=== PATIENT | female | born 1950 ===

== ENCOUNTER 2025-07-25 09:49 | Outpatient (AMB) | payer MEDICARE, SELFPAY ==
--- OUTSIDE RECORDS SUMMARY | 2025-04-14 15:20 | XMS_ITS | Encounter Summary ---
Author Organization [facility] Address [address] [place] [address] Care Team Providers Care Psychiatric Specialist Name Role Phone Dimitrios Barreto MD Primary Care Provider [phone] Dimitrios Barreto MD Unavailable [phone] Encounter Details Date Type Department Care Team (Late Contact Info) Description 04/14/2025 3:20 PM EDT Hospital [facility] [address] [place] [phone] Sunny Taylor MD [address] [place] [address] Social History Tobacco Use Types Packs/Day Years Used Date Smoking Tobacco: Never Smokeless Tobacco: Never Alcohol Use Standard Drinks/Week Comments Not Currently 0 (1 standard drink = 0.6 oz pur e alcohol) Comments Unknown Sex and Gender Information Value Date Recorded Sex Assigned at Female 04/15/2023 8:25 AM EDT Legal Sex Female 3:26 PM EDT Gender Identity Female 04/15/2023 8:25 AM EDT Sexual Orientation Choose not to disclose 2022 8:25 AM EDT Occupation Industry Job Start Date Job End Date Retired teacher Not on file Not on file Not on file documented as of this encounter Plan of Treatment Upcoming Encounters Date Type Department Care Team (Late st Contact Info) Description 11/19/2025 11:00 AM EST Office Visit [facility] Department of Internal Medicine [address] [place] [phone] Dimitrios Barreto MD [address] [facility] [place] [address] documented as of this encounter Procedures Procedure Name Priority Date/Time Associated Diagnosis Comments XR ANKLE 3+ VIEWS-LEFT STAT 04/14/2025 3:43 PM EDT Acute left ankle pain documented in this encounter Results * XR Ankle 3+ views-Left (04/14/2025 3:43 PM EDT) Anatomical Region Laterality Modality Ankle Left Computed Radiogr aphy 04/14/2025 3:54 PM EDT Impressions 04/14/2025 4:00 PM EDT 1. The medial soft tissue swelling along the ankle and posterior foot. No acute bony abnormality. Narrative 04/14/2025 4:00 PM EDT COMPARISON(S): None. . TECHNIQUE: AP, lateral, and oblique radiographs of the LEFT ankle were obtained. 3:34 PM . FINDINGS: There is slight soft tissue swelling asymmetrically over the medial malleolus. Bony mineralization and alignment are maintained. There are mild degenerative changes at the ankle joint medially. No radiopaque foreign body. No erosive or destructive abnormality. On the lateral, no ankle effusion is present. Vascular calcifications are present. No acute abnormality is seen in the posterior foot. Minimal calcifications at the Achilles insertion and there is a small plantar spur . Procedure Note Austin Contreras MD - 04/14/2025 COMPARISON(S): None. . TECHNIQUE: AP, lateral, and oblique radiographs of the LEFT ankle wereobtained. 3:34 PM . FINDINGS: There is slight soft tissue swelling asymmetrically over the medialmalleolus. Bony mineralization and alignment are maintained. There aremild degenerative changes at the ankle joint medially. No radiopaque foreign body. No erosive or destructive abnormality. On the lateral, no ankle effusion is present. Vascular calcifications arepresent. No acute abnormality is seen in the posterior foot. Minimal calcifications at the Achilles insertion and there is a smallplantar spur . IMPRESSION: 1. The medial soft tissue swelling along the ankle and posterior foot. Noacute bony abnormality. Tania Montgomery PA-C IMG DIAGNOSTIC IMAGING OR DERABLES Final Result documented in this encounter Visit Diagnoses Not on filedocumented in this encounter Care Teams Psychiatric Specialist Relationship Specialty Start Date End Date Dimitrios Barreto MD [address] [place] [id number] PCP - General Dimitrios Barreto MD [address] [place] [address] PCP - [facility] Medicare Patients 12/30/22 documented as of this encounter
--- OUTSIDE RECORDS SUMMARY | 2025-07-25 10:28 | XMS_ITS | Encounter Summary ---
Author Organization [facility] Address [address] [place] [address] Care Team Providers Care Assistant Manager Quality Management Name Role Phone Dimitrios Barreto MD Primary Care Provider Dimitrios Barreto MD Unavailable [phone] Erwin Palm MD Unavailable Unava ilable Encounter Details Date Type Department Care Team (Late st Contact Info) Description 12/31/2023 Scanned Document [facility] Department of Internal Medicine [address] 1[address] [place] [phone] Dimitrios Barreto MD [address] [place] [phone] Social History Tobacco Use Types Packs/Day Years [...] Description 11/19/2025 11:00 AM EST Office Visit [facility] Department of Internal Medicine [place] [address] [facility] 1st [place] [phone] Dimitrios Barreto MD [address] [place] [address] documented as of this encounter Visit Diagnoses Not on filedocumented in this encounter Care Teams Assistant Manager Quality Management Relationship Specialty Start Date End Date Dimitrios Barreto MD [address] [place] [address] PCP - General Dimitrios Barreto MD [address] [place] [address] PCP - [facility] Medicare Patients 12/30/22 Erwin Palm MD Internal Medicine 07/24/25 documented as of this encounter
--- OUTSIDE RECORDS SUMMARY | 2025-07-25 10:28 | XMS_ITS | Encounter Summary ---
Author Organization [facility] Address [address] [place] [address] Care Team Providers Care Ambulatory Services Representative Name Role Phone Dimitrios Barreto MD Primary Care Provider Dimitrios Barreto MD Unavailable [phone] Erwin Palm MD Unavailable Unava ilable Encounter Details Date Type Department Care Team (Late st Contact Info) Description 10/13/2023 Scanned Document [facility] Department of Internal Medicine [address] [place] [phone] Dimitrios Barreto MD [address] [place] [id number] Social History Tobacco Use Types Packs/Day Years Used Date Smoking Tobacco: Never Assessed Comments Unknown Sex and Gender Information Value Date Recorded Sex Assigned at Female 04/15/2023 8:25 AM EDT Legal Sex Female 3:26 PM EDT Gender Identity Female 04/15/2023 8:25 AM EDT Sexual Orientation Choose not to disclose 2022 8:25 AM EDT documented as of this encounter Plan of Treatment Upcoming Encounters Date Type Department Care Team (Late st Contact Info) Description 11/19/2025 11:00 AM EST Office Visit [facility] Department of Internal Medicine [address] [place] [phone] Dimitrios Barreto MD [address] [place] [address] documented as of this encounter Visit Diagnoses Not on filedocumented in this encounter Care Teams Ambulatory Services Representative Relationship Specialty Start Date End Date Dimitrios Barreto MD [address] [place] [address] [place] [address] PCP - General Dimitrios Barreto MD [address] [place] [address] [place] [address] PCP - [facility] Medicare Patients 12/30/22 Erwin Palm MD Internal Medicine 07/24/25 documented as of this encounter
--- OUTSIDE RECORDS SUMMARY | 2025-07-25 10:28 | XMS_ITS | Clinical Summary ---
Author Organization [facility] Address [address] [place] [address] Care Team Providers Care Fire Extinguisher Technician Name Role Phone Dimitrios Barreto MD Primary Care Provider [phone] Allergies Active Allergy Reactions Criticality Noted Date Comments Atorvastatin 12/02/2023 Candesartan 12/02/2023 Hydrochlorothiazide 12/02/2023 Iodine Swelling 12/02/2023 Over 50 years ago Medications Medication Sig Dispensed Refills Start Date End Date Status Calcium Carb-Cholecalciferol (CALCIUM 600+D3 PO) Take 1 tablet by mouth 2 (two) times a day. 0 11/18/2023 Active metFORMIN (GLUCOPHAGE-XR) ER 24 hr tablet 500 mg Take 1 tablet (500 mg total) by mouth 2 (two) times a day. 0 09/07/2023 Active pantoprazole (PROTONIX) 40 MG tablet Take 1 tablet (40 mg total) by mouth Every evening with dinner. 0 10/04/2023 Active rosuvastatin (CRESTOR) tablet 10 mg Take 1 tablet (10 mg total) by mouth daily. 0 10/04/2023 Active meloxicam (MOBIC) 15 MG tablet Take 1 tablet (15 mg total) by mouth daily. 0 06/29/2019 Active fexofenadine (KLS Aller-Fex) 180 MG tablet Take 1 tablet (180 mg total) by mouth daily. 0 Active meclizine (ANTIVERT) 12.5 MG tablet Take 1 tablet (12.5 mg total) by mouth 2 (two) times a day. 0 12/03/2023 Active acetaminophen (TYLENOL) 325 MG tablet Take 2 tablets (650 mg total) by mouth every 6 (six) hours as needed. 120 tablet 0 12/17/2023 Active aspirin EC 81 MG EC tablet Take 1 tablet (81 mg total) by mouth daily. 30 tablet 1 12/18/2023 Active Active Problems Problem Noted Date Diagnosed Date Aortic stenosis, severe 12/16/2023 Family History Medical History Relation Name Comments No Sig Med Hx Daughter Heart disease Father 65 Aneurysm Mother 71 No Sig Med Hx Son Relation Name Status Comments Daughter Alive Father 65 Mother 71 Son Alive Social History Tobacco Use Types Packs/Day Years Used Date Smoking Tobacco: Never Smokeless Tobacco: Never Tobacco Cessation:Counseling Given: Not Answered Alcohol Use Standard Drinks/Week Comments Yes 7 (1 standard drink = 0.6 oz pur e alcohol) Sex and Gender Information Value Date Recorded Sex Assigned at Female 11/24/2023 11:53 AM EST Gender Identity Not on file Sexual Orientation Not on file Job Start Date Occupation Industry Not on file Not on file Not on file Last Filed Vital Signs Vital Sign Reading Time Taken Comments Blood Pressure 125/66 12/17/2023 9:19 AM EST Pulse 69 12/17/2023 9:19 AM EST Temperature 36.6 C (97.9 F) 12/17/2023 9:19 AM EST Respiratory Rate 15 12/17/2023 9:19 AM EST Oxygen Saturation 98% 12/17/2023 9:19 AM EST Inhaled Oxygen Concentration - - Weight 98.4 kg (217 lb) 12/17/2023 3:57 AM EST Height 162.6 cm (5' 4 ) 12/16/2023 6:51 AM EST Body Mass Index 37.25 12/16/2023 6:51 AM EST Plan of Treatment Health Maintenance Due Date Last Done Comments Hepatitis C Screening 1950 COVID-19 Vaccine (#1) 03/23/1951 Depression Screening 1960 Preventative Health Evaluation 1966 Fall Risk Assessment 2013 Osteoporosis Screening (DEXA Scan) 2013 Shingrix-Zoster Vaccine (2 of 2) 08/11/2019 06/16/2019 RSV Adult > 60+ Yrs or (1 - 1-dose 75+ series) 2023 BMI Counseling 12/02/2024 12/02/2023 DTap / Tdap / Td (2 - Td or Tdap) 07/23/2025 07/23/2015 Influenza Vaccine (#1) 2025 2, 09/27/2018, 06/30/2017, Additional history exists Pneumococcal Vaccine Completed 10/27/2022, 06/17/2015, 12/07/2013 Hepatitis B Vaccines Aged Out No long er eligible based on patient's age to complete this topic RSV Ped < 20 months Aged Out No longe r eligible based on patient's age to complete this topic Medical Devices Implanted Type Area Sub Master Device Identifier Shelf Expiration Date Model / Serial / Lot Valve Niki 3 Ultra Thv 23mm W Command System [facility] [id number] - [id number] Implanted:Qty: 1 on 12/16/2023 by Dimitrios Martin MD at [facility] and [employer] 03/08/2026 [id number] / [id number] / Advance Directives For more information, please contact: [phone] Latest Code Status on File Code Status Date Activated Date Inactivated Comments Full Code 12/16/2023 9:46 AM 12/17/2023 11:25 PM This code status was ascertained in the following way: discussion with patient Code Status History Code Status Date Activated Date Inactivated Comments Full Code 12/16/2023 6:01 AM 12/16/2023 9:46 AM This code status was ascertained in the following way: discussion with patient . Care Teams Fire Extinguisher Technician Relationship Specialty Start Date End Date Dimitrios Barreto MD [address] [facility] [place] [id number] PCP - General Internal Medicine 11/23/23
--- OUTSIDE RECORDS SUMMARY | 2025-07-25 10:28 | XMS_ITS ---
Author Name [facility] Organization Unknown Results Test Name/Text Value Interpretation Date Range Source Glucose Bld-mCnc 139.0 mg/dL Normal 02/05/2025 70 - 199 [facility] GLUCOSE BLDC GLUCOMTR MCNC 116.0 mg/dL Normal 12/17/2023 70 - 199 [facility] GLUCOSE BLDC GLUCOMTR MCNC 107.0 mg/dL Normal 12/17/2023 70 - 199 [facility] CA I SERPL SCNC 1.19 mmol/L Normal 12/17/2023 1.19 - 1.35 [facility] SODIUM SERPL SCNC 142.0 mmol/L Normal 12/17/2023 135 - 14 5 [facility]AN Glomerular filtration rate/1.73 sq M. predicted 90.0 Normal 12/17/2023 60 - CTTHSFRAN HCO3 SER SCNC 29.0 mmol/L Normal 12/17/2023 24 - 32 CTT HSFRAN POTASSIUM SERPL SCNC 3.8 mmol/L Normal 12/17/2023 3.5 - 5.1 [facility] GLUCOSE P FAST SERPL MCNC 114.0 mg/dL Above high normal 12/17/2023 70 - 99 [facility] CREAT SERPL MCNC 0.7 mg/dL Normal 12/17/2023 0.5 - 1 CT [facility] CHLORIDE SERPL SCNC 106.0 mmol/L Normal 12/17/2023 98 - 1 07 [facility] CALCIUM SERPL MCNC 9.3 mg/dL Normal 12/17/2023 8.4 - 10.2 [facility] BUN SERPL MCNC 12.0 mg/dL Normal 12/17/2023 7 - 17 CTT HSFRAN ANION GAP SERPL SCNC 7.0 mmol/L Normal 12/17/2023 5 - 14 [facility] PHOSPHATE SERPL MCNC 3.5 mg/dL Normal 12/17/2023 2.5 - 4.5 [facility] MAGNESIUM SERPL MCNC 2.0 mg/dL Normal 12/17/2023 1.7 - 2.8 [facility] PMV BLD AUTO 9.0 fL Normal 12/17/2023 7.4 - 11.4 [facility]S [place] PLATELET NO. BLD AUTO 178.0 K/uL Normal 12/17/2023 150 - 450 [facility] BASOPHILS NFR BLD AUTO 0.3 % Normal 12/17/2023 0 - 2 [facility] EOSINOPHIL NO. BLD AUTO 0.1 K/uL Normal 12/17/2023 0 - 0.5 [facility] HCT VFR BLD AUTO 40.5 % Normal 12/17/2023 37 - 47 CT [facility] RDW RBC AUTO RTO 13.2 % Normal 12/17/2023 12.1 - 16.2 [facility] NEUTROPHILS NFR BLD AUTO 76.1 % Above high normal 12/17/2023 44 - 74 [facility] LYMPHOCYTES NFR BLD AUTO 15.7 % Below low normal 12/17/2023 20 - 48 [facility] MCH RBC QN AUTO 30.8 pg Normal 12/17/2023 25 - 33 CTT HSFRAN MCHC RBC AUTO MCNC 33.9 g/dL Normal 12/17/2023 32 - 36 [facility] MCV RBC AUTO 90.7 fL Normal 12/17/2023 78 - 100 CTTHSF RAN MONOCYTES NFR BLD AUTO 7.5 % Normal 12/17/2023 2 - 12 [facility] BASOPHILS IN BLOOD BY AUTOMATED COUNT 0.0 K/uL Normal 12/17/2023 0 - 0.2 [facility] HGB BLD MCNC 13.7 g/dL Normal 12/17/2023 12.5 - 16 CTTHSF RAN DIFFERENTIAL TYPE AUTOMATED Normal 12/17/2023 C TTHSFRAN MONOCYTES NO. BLD AUTO 1.0 K/uL Above high normal 12/17/2023 0 - 0.8 [facility] WBC NO. BLD AUTO 13.9 K/uL Above high normal 12/17/2023 4 - 10.5 [facility] EOSINOPHIL NFR BLD AUTO 0.4 % Normal 12/17/2023 0 - 6 [facility] LYMPHOCYTES NO. BLD AUTO 2.2 K/uL Normal 12/17/2023 1 - 3.2 [facility] NEUTROPHILS NO. BLD AUTO 10.5 K/uL Above high normal 12/17/2023 1.8 - 7.8 [facility] RBC NO. BLD AUTO 4.47 M/uL Normal 12/17/2023 4.2 - 5.4 CT THS[facility]AN GLUCOSE BLDC GLUCOMTR MCNC 205.0 mg/dL Above high normal 12/17/2023 70 - 199 [facility] MAGNESIUM SERPL MCNC 2.0 mg/dL Normal 12/16/2023 1.7 - 2.8 [facility] GLUCOSE BLDC GLUCOMTR MCNC 181.0 mg/dL Normal 12/16/2023 70 - 199 [facility] POTASSIUM BLDC SCNC 3.5 mmol/L Normal 12/16/2023 3.5 - 5. 1 [facility] CORRECTED TEMP 98.6 F Normal 12/16/2023 CTTH SFRAN pCO2 temp adj Bld 48.7 mmHg Above high normal 12/16/2023 35 - 45 [facility] HCO3 BLDA SCNC 19.4 mmol/L Below low normal 12/16/2023 22 - 26 [facility] SODIUM BLDC SCNC 142.0 mmol/L Normal 12/16/2023 135 - 145 [facility] CA I BLDC SCNC 1.25 mmol/L Normal 12/16/2023 1.19 - 1.35 [facility] PH TEMP ADJ BLDA 7.207 Below low normal 12/16/2023 7.35 - 7.45 [facility] HGB BLDC MCNC 12.2 g/dL Below low normal 12/16/2023 12.5 - 1 6 [facility] SAO2% BLDA 99.0 % Above high normal 12/16/2023 95 - 98 [facility]AN O2/INSPIRED GAS SETTING VFR VENT 100.0 % Normal 12/16/2023 CT[facility]AN Service Cmmt XXX-Imp ISTAT Normal 12/16/2023 [facility] GLUCOSE BLDC GLUCOMTR MCNC 176.0 mg/dL Normal 12/16/2023 70 - 199 [facility] pO2 temp adj Bld 141.0 mmHg Above high normal 12/16/2023 80 - 105 [facility] BASE DEFICIT BLDA SCNC 9.0 mmol/L Above high normal 12/16/2023 0 - 2 CTTHS[facility]AN BLOOD GAS SITE ARTERIAL Normal 12/16/2023 CTTH SFRAN HCT VFR BLDC 36.0 % Below low normal 12/16/2023 37 - 47 [facility]AN RBC NO. BLD AUTO 4.3 M/uL Normal 12/16/2023 4.2 - 5.4 CT [facility] WBC NO. BLD AUTO 13.8 K/uL Above high normal 12/16/2023 4 - 10.5 [facility] LYMPHOCYTES NFR BLD AUTO 5.2 % Below low normal 12/16/2023 20 - 48 [facility] EOSINOPHIL NO. BLD AUTO 0.0 K/uL Normal 12/16/2023 0 - 0.5 [facility] NEUTROPHILS NO. BLD AUTO 12.8 K/uL Above high normal 12/16/2023 1.8 - 7.8 [facility] MONOCYTES NO. BLD AUTO 0.2 K/uL Normal 12/16/2023 0 - 0.8 [facility] MCH RBC QN AUTO 30.7 pg Normal 12/16/2023 25 - 33 CTT HSFRAN HGB BLD MCNC 13.2 g/dL Normal 12/16/2023 12.5 - 16 CT[facility] RAN DIFFERENTIAL TYPE AUTOMATED Normal 12/16/2023 C TTHSFRAN MCHC RBC AUTO MCNC 33.6 g/dL Normal 12/16/2023 32 - 36 [facility] PMV BLD AUTO 10.3 fL Normal 12/16/2023 7.4 - 11.4 [facility] [place] HCT VFR BLD AUTO 39.3 % Normal 12/16/2023 37 - 47 CT [facility] BASOPHILS IN BLOOD BY AUTOMATED COUNT 0.0 K/uL Normal 12/16/2023 0 - 0.2 [facility] MONOCYTES NFR BLD AUTO 1.5 % Below low normal 12/16/2023 2 - 12 [facility] RDW RBC AUTO RTO 13.4 % Normal 12/16/2023 12.1 - 16.2 [facility]AN PLATELET NO. BLD AUTO 188.0 K/uL Normal 12/16/2023 150 - 450 [facility] NEUTROPHILS NFR BLD AUTO 93.0 % Above high normal 12/16/2023 44 - 74 [facility] EOSINOPHIL NFR BLD AUTO 0.2 % Normal 12/16/2023 0 - 6 [facility] MCV RBC AUTO 91.3 fL Normal 12/16/2023 78 - 100 CT[facility]SF RAN BASOPHILS NFR BLD AUTO 0.1 % Normal 12/16/2023 0 - 2 [facility] LYMPHOCYTES NO. BLD AUTO 0.7 K/uL Below low normal 12/16/2023 1 - 3.2 [facility] MAGNESIUM SERPL MCNC 1.4 mg/dL Below low normal 12/16/2023 1.7 - 2.8 [facility] HCO3 SER SCNC 22.0 mmol/L Below low normal 12/16/2023 24 - 3 2 [facility] POTASSIUM SERPL SCNC 3.7 mmol/L Normal 12/16/2023 3.5 - 5.1 [facility] BUN SERPL MCNC 12.0 mg/dL Normal 12/16/2023 7 - 17 CTT HSFRAN SODIUM SERPL SCNC 139.0 mmol/L Normal 12/16/2023 135 - 14 5 CT[facility]AN Glomerular filtration rate/1.73 sq M. predicted 94.0 Normal 12/16/2023 60 - CTTHS[facility]AN ANION GAP SERPL SCNC 13.0 mmol/L Normal 12/16/2023 5 - 14 [facility] CALCIUM SERPL MCNC 8.7 mg/dL Normal 12/16/2023 8.4 - 10.2 [facility] CREAT SERPL MCNC 0.6 mg/dL Normal 12/16/2023 0.5 - 1 CT [facility] GLUCOSE P FAST SERPL MCNC 173.0 mg/dL Above high normal 12/16/2023 70 - 99 [facility] CHLORIDE SERPL SCNC 104.0 mmol/L Normal 12/16/2023 98 - 1 07 [facility] CA I SERPL SCNC 1.05 mmol/L Below low normal 12/16/2023 1.19 - 1.35 [facility] PHOSPHATE SERPL MCNC 3.6 mg/dL Normal 12/16/2023 2.5 - 4.5 [facility] POTASSIUM BLDC SCNC 3.9 mmol/L Normal 12/16/2023 3.5 - 5. 1 [facility] HGB BLDC MCNC 13.3 g/dL Normal 12/16/2023 12.5 - 16 [facility] [place] HCT VFR BLDC 39.0 % Normal 12/16/2023 37 - 47 CTTF RAN BLOOD GAS SITE ARTERIAL Normal 12/16/2023 CTTH SFRAN HCO3 BLDA SCNC 20.9 mmol/L Below low normal 12/16/2023 22 - 26 [facility] CA I BLDC SCNC 1.26 mmol/L Normal 12/16/2023 1.19 - 1.35 CTTFRAN O2/INSPIRED GAS SETTING VFR VENT 100.0 % Normal 12/16/2023 CTTFRAN CORRECTED TEMP 98.6 F Normal 12/16/2023 CTT SFRAN GLUCOSE BLDC GLUCOMTR MCNC 189.0 mg/dL Normal 12/16/2023 70 - 199 [facility] pCO2 temp adj Bld 48.2 mmHg Above high normal 12/16/2023 35 - 45 [facility] pO2 temp adj Bld 138.0 mmHg Above high normal 12/16/2023 80 - 105 [facility] BASE DEFICIT BLDA SCNC 6.0 mmol/L Above high normal 12/16/2023 0 - 2 CT[facility] PH TEMP ADJ BLDA 7.244 Below low normal 12/16/2023 7.35 - 7.45 CT[facility]AN SAO2% BLDA 99.0 % Above high normal 12/16/2023 95 - 98 CTTFRAN Service Cmmt XXX-Imp ISTAT Normal 12/16/2023 [facility] SODIUM BLDC SCNC 140.0 mmol/L Normal 12/16/2023 135 - 145 [facility] GLUCOSE BLDC GLUCOMTR MCNC 197.0 mg/dL Normal 12/16/2023 70 - 199 [facility]AN TRANS NUM UNITS PACKED RBC Refer to TYPE AND SCREEN Order, for Red Cell Product Data / Detail Normal 12/16/2023 CTTHS[facility]AN PT TIME PPP 10.6 sec Normal 12/16/2023 10.5 - 13.3 [facility] APTT TIME PPP 32.0 sec Normal 12/16/2023 25 - 37 [facility] [place] INR PPP 0.9 Normal 12/16/2023 0.8 - 1.1 CTTHSFRAN PREALB SERPL NEPH MCNC 28.3 mg/dL Normal 12/16/2023 17 - 34 CTTHS[facility]AN BLD GP AB SCN SERPL QL NEGATIVE Normal 12/16/2023 [facility] BLOOD BANK CMNT PATIENT-IMP Testing performed at [facility], [address] [place] [id number], Malika Lozano MD Cashier Clerk, [facility] [id number] Normal 12/16/2023 CTTHSFRAN ABO+RH GP BLD O POSITIVE Normal 12/16/2023 CTT SFRAN Hgb A1c MFr Bld HPLC 6.4 % Above high normal 12/16/2023 - 5.7 [facility] BLOOD BANK CMNT PATIENT-IMP Testing performed at [facility], [address] [place] [id number], Malika Lozano MD Cashier Clerk, [facility] [id number] Normal 12/10/2023 CTTHNEMG BLD GP AB SCN SERPL QL NEGATIVE Normal 12/10/2023 CTTHNEMG ABO+RH GP BLD O POSITIVE Normal 12/10/2023 CTTH NEMG BNP BLD MCNC 57.0 pg/mL Normal 12/10/2023 0 - 100 CTTHN EMG INR PPP 0.9 Normal 12/10/2023 0.8 - 1.1 CTTHNEMG PT TIME PPP 10.7 sec Normal 12/10/2023 10.5 - 13.3 CTTHN EMG ALBUMIN/GLOB SERPL MRTO 1.6 Normal 12/10/2023 CTTHNEMG AST SERPL CCNC 19.0 U/L Normal 12/10/2023 5 - 40 CTTH NEMG ALBUMIN SERPL BCG MCNC 3.8 g/dL Normal 12/10/2023 3.5 - 5 CTTHNEMG PROT SERPL MCNC 6.2 g/dL Below low normal 12/10/2023 6.4 - 8.5 CTTHNEMG BILIRUB DIRECT SERPL MCNC 0.2 mg/dL Normal 12/10/2023 0 - 0.2 CTTHNEMG ALT SERPL CCNC 19.0 U/L Normal 12/10/2023 7 - 52 CTTH NEMG BILIRUB SERPL MCNC 0.8 mg/dL Normal 12/10/2023 0.3 - 1 CTTHNEMG ALP SERPL-CCNC 72.0 U/L Normal 12/10/2023 34 - 104 CTTH NEMG GLUCOSE P FAST SERPL MCNC 140.0 mg/dL Above high normal 12/10/2023 70 - 99 CTTHNEMG Glomerular filtration rate/1.73 sq M. predicted 77.0 Normal 12/10/2023 60 - CTTHNEMG ANION GAP SERPL SCNC 12.0 mmol/L Normal 12/10/2023 5 - 14 CTTHNEMG CALCIUM SERPL MCNC 10.3 mg/dL Above high normal 12/10/2023 8 .4 - 10.2 CTTHNEMG SODIUM SERPL SCNC 141.0 mmol/L Normal 12/10/2023 135 - 14 5 CTTHNEMG CREAT SERPL MCNC 0.8 mg/dL Normal 12/10/2023 0.5 - 1 CT THNEMG POTASSIUM SERPL SCNC 3.5 mmol/L Normal 12/10/2023 3.5 - 5.1 CTTHNEMG CHLORIDE SERPL SCNC 103.0 mmol/L Normal 12/10/2023 98 - 1 07 CTTHNEMG BUN SERPL MCNC 18.0 mg/dL Above high normal 12/10/2023 7 - 1 7 CTTHNEMG HCO3 SER SCNC 26.0 mmol/L Normal 12/10/2023 24 - 32 CTT HNEMG EOSINOPHIL NFR BLD AUTO 2.3 % Normal 12/10/2023 0 - 6 CTTHNEMG NEUTROPHILS NO. BLD AUTO 5.3 K/uL Normal 12/10/2023 1.8 - 7.8 CTTHNEMG HGB BLD MCNC 14.1 g/dL Normal 12/10/2023 12.5 - 16 CTTHNE MG BASOPHILS IN BLOOD BY AUTOMATED COUNT 0.0 K/uL Normal 12/10/2023 0 - 0.2 CTTHNEMG HCT VFR BLD AUTO 41.8 % Normal 12/10/2023 37 - 47 CT THNEMG WBC NO. BLD AUTO 8.2 K/uL Normal 12/10/2023 4 - 10.5 CT THNEMG RBC NO. BLD AUTO 4.63 M/uL Normal 12/10/2023 4.2 - 5.4 CT THNEMG PMV BLD AUTO 9.1 fL Normal 12/10/2023 7.4 - 11.4 CTTHN EMG PLATELET NO. BLD AUTO 266.0 K/uL Normal 12/10/2023 150 - 450 CTTHNEMG LYMPHOCYTES NO. BLD AUTO 2.1 K/uL Normal 12/10/2023 1 - 3.2 CTTHNEMG EOSINOPHIL NO. BLD AUTO 0.2 K/uL Normal 12/10/2023 0 - 0.5 CTTHNEMG DIFFERENTIAL TYPE AUTOMATED Normal 12/10/2023 C TTHNEMG MCV RBC AUTO 90.3 fL Normal 12/10/2023 78 - 100 CTTHNE MG BASOPHILS NFR BLD AUTO 0.4 % Normal 12/10/2023 0 - 2 CTTHNEMG NEUTROPHILS NFR BLD AUTO 63.9 % Normal 12/10/2023 44 - 74 CT[facility]NEMG RDW RBC AUTO RTO 13.1 % Normal 12/10/2023 12.1 - 16.2 CTTHNEMG MONOCYTES NFR BLD AUTO 8.0 % Normal 12/10/2023 2 - 12 CT[facility]G MONOCYTES NO. BLD AUTO 0.7 K/uL Normal 12/10/2023 0 - 0.8 CT[facility]NEMG LYMPHOCYTES NFR BLD AUTO 25.4 % Normal 12/10/2023 20 - 48 CT[facility]G MCHC RBC AUTO MCNC 33.8 g/dL Normal 12/10/2023 32 - 36 CT[facility]G MCH RBC QN AUTO 30.5 pg Normal 12/10/2023 25 - 33 CTT HNEMG ABO+RH GP BLD O POSITIVE Normal [facility]/10/[facility] CM[facility] PATIENT-IMP Testing performed at [facility], [address] [place] [id number], Malika Lozano MD Cashier Clerk, [facility] [id number] Normal 12/10/2023 CTTFRAN History of Medication Use Medication Directions Dispensed Refills Start Date End Date Stat us sodium,potassium,mag sulfates (SUPREP) 17.5-3.13-1.6 gram recon soln bowel prep kit oral solution Take 360 mL by mouth 1 (one) time for 1 dose. 01/04/2025 01/05/2025 active meclizine (ANTIVERT) 12.5 MG tablet 1-2 tabs po q 8 hr prn dizziness 12/03/2023 active predniSONE (DELTASONE) 20 MG tablet 2 tabs po every day x 4 days,With food. 12/03/2023 active calcium carbonate (CALCIUM 600 ORAL) 1 tablet, By Mouth, Daily, # 180 tablet, 0 Refills, Maintenance, 11/18/23 9:37:00 EST, Tablet, Partial fill upon patient request if the prescription is for a schedule II opioid drug. 11/18/2023 active calcium carbonate (CALCIUM 600 ORAL) 1 tablet, By Mouth, Daily, # 180 tablet, 0 Refills, Maintenance, 11/18/23 9:37:00 EST, Tablet, Partial fill upon patient request if the prescription is for a schedule II opioid drug. 11/18/2023 active amoxicillin-clavulan ate (AUGMENTIN) 875-125 MG per tablet Take 1 tablet by mouth 2 (two) times a day. 09/21/2023 10/02/2023 active PANTOprazole (PROTONIX) 40 MG EC tablet TAKE 1 TABLET BY MOUTH AT DINNERTIME EVERY DAY 04/28/2023 active rosuvastatin (CRESTOR) 10 MG tablet 04/20/2023 active calcium carbonate (CALTRATE) 1500 (600 Ca) MG tablet Take 1 tablet by mouth daily. 12/14/2016 active coenzyme Q10 (CO Q 10) 100 MG capsule Take by mouth. 03/18/2015 ac tive ACETAMINOPHEN ORAL Take 500 mg by mouth every 6 (six) hours if needed. active aspirin 81 mg chewable tablet Chew 1 tablet (81 mg total) 1 (one) time each day. active fexofenadine (THONG) 180 MG tablet Take 180 mg by mouth. active meloxicam (MOBIC) 15 mg tablet Take 0.5 Tablets by mouth daily. active metFORMIN (GLUCOPHAGE) 500 mg tablet Take 1 Tablet by mouth. 1 tab in AM 2 tabs in PM active No known medications No known medications active pantoprazole (PROTONIX) 40 mg EC tablet Take 1 tablet (40 mg total) by mouth 1 (one) time each day. active pantoprazole (PROTONIX) 40 mg EC tablet Take 1 tablet (40 mg total) by mouth 1 (one) time each day. active rosuvastatin (CRESTOR) 10 mg tablet Take 1 tablet (10 mg total) by mouth 1 (one) time each day. active Allergies Allergen Reaction Severity Comment Documented Date Source Status SIMVASTATIN GI INTOLERANCE/ NAUSEA/VOMIT ING 04/28/2023 [facility] active ATORVASTATIN MYALGIA/MYOS ITIS/ARTHRAL OSCAR/ARTHRITI S [facility] CANDESARTAN ITCHING Unsure of reaction CT_THSFRA N HYDROCHLOROTHIAZIDE UNKNOWN/SHY ENT AND FAMILY UNABLE TO DEFINE [facility] IODINE ITCHING Pt states allergic to injectable iodine CT_[facility]RA N LISINOPRIL COUGH [facility] ROSUVASTATIN MYALGIA/MYOS ITIS/ARTHRAL OSCAR/ARTHRITI S [facility] Problems Problem Status Onset Date Problem Type Date of Resolution Source SOB (shortness of breath) active 2023-11-02 ProblemAct [facility] Coronary artery disease active 2023-12-30 ProblemAct [facility] Hematochezia active EncounterDiagnosisAct [facility] Syncope active 2024-08-07 ProblemAct [facility] AN Nonrheumatic aortic valve stenosis active EncounterDiagnosisAct [facility] NEMG GERD (gastroesophageal reflux disease) active 2023-07-30 ProblemAct [facility] Type 2 diabetes mellitus active 2023-12-30 ProblemAct [facility] Type 2 diabetes mellitus with hyperglycemia, without long-term current use of insulin active 2023-04-28 ProblemAct [facility] Blood in stool active 2024-12-28 ProblemAct [facility] CT Acute left ankle pain active EncounterDiagnosis Act [facility] History of uterine cancer active 2023-11-16 ProblemAct [facility] Hypertension active 2023-04-28 ProblemAct [facility] Nonrheumatic aortic valve stenosis active 2023-04-28 ProblemAct [facility] Morbid obesity active 2024-07-27 ProblemAct [facility] CT Gastroesophageal reflux disease without esophagitis active 2023-05-06 ProblemAct [facility] Vision changes active 2023-11-16 ProblemAct [facility] CT Primary osteoarthritis of left knee active 2023-11-16 ProblemAct [facility] Memory changes active 2023-11-16 ProblemAct [facility] CT History of transcatheter aortic valve replacement (TAVR) active 2025-02-19 ProblemAct [facility] Hyperlipidemia active 2023-04-28 ProblemAct [facility] CT Status post transcatheter aortic valve replacement (TAVR) using bioprosthesis active 2024-05-17 ProblemAct [facility] Immunizations Vaccine Date Source Lot Number Status Pneumococcal Conjugate 20-Valent 10/27/2022 [facility] completed Covid-19 mRNA Bivalent Vacci ne - Moderna 50 mcg/0.5mL 12+ 11/29/2021 [facility] completed Influenza High-Dose Quadriva lent,(FLUZONE HIGH-DOSE), Perservative Free IM 0.7 mL 65 years and older 11/29/2021 [facility] completed Covid-19 mRNA Primary Series Vaccine - Moderna 0.5 mL Full Dose 02/20/2021 [facility] completed Covid-19 mRNA Primary Series Vaccine - Moderna 0.5 mL Full Dose 01/23/2021 [facility] completed Covid-19 mRNA Primary Series Vaccine - Moderna 0.5 mL Full Dose 11/29/2020 [facility] completed Zoster Vaccine Recombinant (Shingrix) 06/16/2019 [facility] completed Influenza High-Dose Quadriva lent,(FLUZONE HIGH-DOSE), Perservative Free IM 0.7 mL 65 years and older 09/27/2018 [facility] completed Influenza, Quadrivalent (FLU ARIX, AFLURIA, FLULAVAL, FLUZONE) Preservative Free IM 06/30/2017 [facility] completed Influenza, Quadrivalent (FLU AD) Adjuvanted Preservative Free IM 65 years and older 08/11/2016 [facility] completed Tdap 07/23/2015 [facility] completed Zoster Vaccine Live/Attenuated (Zostavax) 06/18/2015 [facility] completed Pneumococcal Conjugate 13-Valent 06/17/2015 [facility] completed Pneumococcal Polysaccharide 23-Valent 12/07/2013 [facility] completed Influenza Inactivated/Split Preservative Free IM 09/17/2012 [facility] completed Influenza Inactivated/Split Preservative Free IM 10/14/2011 [facility] completed Influenza Inactivated/Split Preservative Free IM 09/20/2010 [facility] completed Encounters Encounter Type Encounter Reason Primary Diagnosis Location Date Ambulatory [facility] 07/18/2025 Ambulatory Dizziness and giddiness Dizziness and giddiness [employer] 07/18/2025 Ambulatory [facility] 04/14/2025 Ambulatory Ankle Pain Ankle Pain [facility] 04/14/2025 Ambulatory [facility] 02/13/2025 Ambulatory Melena Melena oNE [facility] 02/05/2025 Ambulatory bloody diarrhea bloody diarrhea [facility] 01/01/2025 Ambulatory [facility] 12/28/2024 Ambulatory Annual Exam Annual Exam [facility] 11/15/2024 Ambulatory Other Other [facility] 07/27/2024 Ambulatory Dizziness Dizziness [facility] 07/21/2024 Ambulatory Other Other [facility] 05/10/2024 Inpatient Nonrheumatic aortic (valve) stenosis Nonrheumatic aortic (valve) stenosis [facility] [place] [place] 12/16/2023 Ambulatory Nonrheumatic aortic (valve) stenosis Nonrheumatic aortic (valve) stenosis [facility] [place] [place] 12/10/2023 Ambulatory Benign paroxysmal vertigo, unspecified ear Benign paroxysmal vertigo, unspecified ear [employer] 12/03/2023 Ambulatory Nonrheumatic aortic (valve) stenosis Nonrheumatic aortic (valve) stenosis [facility] [place] [place] 12/02/2023 Ambulatory Nonrheumatic aortic (valve) stenosis Nonrheumatic aortic (valve) stenosis [facility] [place] [place] 12/02/2023 Ambulatory Nonrheumatic aortic (valve) stenosis Nonrheumatic aortic (valve) stenosis [facility] [place] [place] 12/02/2023 Ambulatory Unspecified visual disturbance Unspecified visual disturbance [employer] 11/08/2023 Ambulatory Acute sinusitis, unspecified Acute sinusitis, unspecified [employer] 09/21/2023 Ambulatory Essential (prima ry) hypertension [employer] 04/28/2023 Care Team Organization Name Specialty Phone Email Start Date End Da te [employer] DIMITRIOS BARRETO Primary Care 04/14/2025 [facility] DIMITRIOS BARRETO Primary Care 02/15/2025 [facility] DIMITRIOS BARRETO Primary Care 02/05/2025 [facility] DIMITRIOS BARRETO Primary Care 0 01/12/2025 [facility] DIMITRIOS BARRETO Primary Care 0 01/02/2025 Taya Celaya [id number] Primary Care 10/19/2024 04/17/2025 Taya Celaya Primary Care 02/23/2024 [facility] [place] [place] [facility] Primary Care 11/3006/12/2025 [facility] [place] [place] [facility] 12/02/2023 12/02/2023 [facility] Dimitrios Barreto Primary [facility] 04/28/2023 [facility]OS [facility]
--- OUTSIDE RECORDS SUMMARY | 2025-07-25 10:28 | XMS_ITS | Encounter Summary ---
Author Organization [facility] Address [address] [place] [address] Care Team Providers Care Insulation Mechanic Name Role Phone Dimitrios Barreto MD Primary Care Provider Dimitrios Barreto MD Unavailable Erwin Palm MD Unavailable Unava ilable Encounter Details Date Type Department Care Team (Late st Contact Info) Description 03/26/2023 Scanned Document [facility] Department of Internal Medicine [address] [place] [phone] Dimitrios Barreto MD [address] [place] [phone] Social History Tobacco Use Types Packs/Day Years [...] Description 11/19/2025 11:00 AM EST Office Visit [facility] Department of Internal Medicine [address] [place] [phone] Dimitrios Barreto MD [address] [place] [phone] documented as of this encounter Visit Diagnoses Not on filedocumented in this encounter Care Teams Insulation Mechanic Relationship Specialty Start Date End Date Dimitrios Barreto MD [address] [place] [address] [place] [address] PCP - General Dimitrios Barreto MD [address] [place] [address] [place] [address] PCP - [facility] Patients 12/30/22 Erwin Palm MD Internal Medicine 07/24/25 documented as of this encounter
--- OUTSIDE RECORDS SUMMARY | 2025-07-25 10:28 | XMS_ITS | Encounter Summary ---
Author Organization [facility] Address [address] [place] [id number] Care Team Providers Care Legal Editor Name Role Phone Dimitrios Barreto MD Primary Care Provider [phone] Dimitrios Barreto MD Unavailable [phone] Erwin Palm MD Unavailable Unava ilable Encounter Details Date Type Department Care Team (Late Contact Info) Description 07/27/2024 Scanned Document [facility] Department of Internal Medicine [address] [place] [phone] Dimitrios Barreto MD [address] [place] [address] [id number] Social History Tobacco Use Types Packs/Day Years [...] Visit [facility] Department of Internal Medicine [place] [address] [facility] [address] [place] [phone] Dimitrios Barreto MD [address] [place] [address] documented as of this encounter Visit Diagnoses Not on filedocumented in this encounter Care Teams Legal Editor Relationship Specialty Start Date End Date Dimitrios Barreto MD [address] [place] [address] PCP - General Dimitrios Barreto MD [address] [place] [address] PCP - [facility] Medicare Patients 12/30/22 Erwin Palm MD Internal Medicine 07/24/25 documented as of this encounter
--- OUTSIDE RECORDS SUMMARY | 2025-07-25 10:28 | XMS_ITS | Encounter Summary ---
Author Organization [facility]ly [facility] Address [address] [place] [address] Care Team Providers Care Flight Control Specialist Name Role Phone Dimitrios Barreto MD Primary Care Provider Dimitrios Barreto MD Unavailable [phone] Erwin Palm MD Unavailable Unava ilable Encounter Details Date Type Department Care Team (Late st Contact Info) Description 04/30/2023 Scanned Document [facility] Department of Internal Medicine [address] [place] [phone] Dimitrios Barreto MD [address] [place] [address] [phone] Social History Tobacco Use Types Packs/Day Years [...] Description 11/19/2025 11:00 AM EST Office Visit [facility] Department of Internal Medicine [address] [place] [phone] Dimitrios Barreto MD [address] [place] [address] documented as of this encounter Visit Diagnoses Not on filedocumented in this encounter Care Teams Flight Control Specialist Relationship Specialty Start Date End Date Dimitrios Barreto MD [address] [place] [address] [place] [address] PCP - General Dimitrios Barreto MD [address] [place] [address] [place] [address] PCP - [facility] Patients 12/30/22 Erwin Palm MD Internal Medicine 07/24/25 documented as of this encounter
--- OUTSIDE RECORDS SUMMARY | 2025-07-25 10:28 | XMS_ITS | Encounter Summary ---
Author Organization [facility] Address [address] [place] [address] Care Team Providers Care Reconditioner Name Role Phone Dimitrios Barreto MD Primary Care Provider Dimitrios Barreto MD Unavailable [phone] Erwin Palm MD Unavailable Unava ilable Encounter Details Date Type Department Care Team (Late Contact Info) Description 07/22/2024 Scanned Document [facility] Department of Internal Medicine [address] 1st [place] [phone] Dimitrios Barreto MD [address] [place] [address] [id number] Social History Tobacco Use Types Packs/Day Years [...] Visit [facility] Department of Internal Medicine [place] 18 [facility] 1st [place] [phone] Dimitrios Barreto MD [address] [place] [address] documented as of this encounter Visit Diagnoses Not on filedocumented in this encounter Care Teams Reconditioner Relationship Specialty Start Date End Date Dimitrios Barreto MD [address] [place] [address] PCP - General Dimitrios Barreto MD [address] [place] [address] PCP - [facility] Patients 12/30/22 Erwin Palm MD Internal Medicine 07/24/25 documented as of this encounter
--- OUTSIDE RECORDS SUMMARY | 2025-07-25 10:28 | XMS_ITS | Encounter Summary ---
Author Organization [facility] Address [address] [place] [address] Care Team Providers Care Reporting Consultant Name Role Phone Dimitrios Barreto MD Primary Care Provider [phone] Dimitrios Barreto MD Unavailable [phone] Erwin Palm MD Unavailable Unava ilable Encounter Details Date Type Department Care Team (Late st Contact Info) Description 12/02/2023 Scanned Document [facility] Department of Internal Medicine [address] 1st [place] [phone] Dimitrios Barreto MD [address] [place] [address] [phone] Social History Tobacco Use Types Packs/Day Years [...] Visit [facility] Department of Internal Medicine [place] 18 [facility] 1st [place] [phone] Dimitrios Barreto MD 18 [place] [address] documented as of this encounter Visit Diagnoses Not on filedocumented in this encounter Care Teams Reporting Consultant Relationship Specialty Start Date End Date Dimitrios Barreto MD [address] [place] [address] PCP - General Dimitrios Barreto MD [address] [place] [address] PCP - [facility] Patients 12/30/22 Erwin Palm MD Internal Medicine 07/24/25 documented as of this encounter
--- OUTSIDE RECORDS SUMMARY | 2025-07-25 10:28 | XMS_ITS | Encounter Summary ---
Author Organization [facility] Address [address] [place] [address] Care Team Providers Care Steam And Gas Turbines Assembler Name Role Phone Dimitrios Barreto MD Primary Care Provider Dimitrios Barreto MD Unavailable [phone] Erwin Palm MD Unavailable Unava ilable Encounter Details Date Type Department Care Team (Late st Contact Info) Description 10/26/2023 Scanned Document [facility] Department of Internal Medicine [address] [place] [phone] Dimitrios Barreto MD [address] [place] [address] [phone] Social History Tobacco Use Types Packs/Day Years [...] Description 11/19/2025 11:00 AM EST Office Visit [facility] Department of Internal Medicine [address] [place] [phone] Dimitrios Barreto MD [address] [place] [address] documented as of this encounter Visit Diagnoses Not on filedocumented in this encounter Care Teams Steam And Gas Turbines Assembler Relationship Specialty Start Date End Date Dimitrios Barreto MD [address] [place] [address] [place] [address] PCP - General Dimitrios Barreto MD [address] [place] [address] [place] [address] PCP - [facility] Patients 12/30/22 Erwin Palm MD Internal Medicine 07/24/25 documented as of this encounter
--- OUTSIDE RECORDS SUMMARY | 2025-07-25 10:28 | XMS_ITS | Encounter Summary ---
Author Organization [facility] Address [address] [place] [address] Care Team Providers Care Police Detective Name Role Phone Dimitrios Barreto MD Primary Care Provider Dimitrios Barreto MD Unavailable [phone] Erwin Palm MD Unavailable Unava ilable Encounter Details Date Type Department Care Team (Late Contact Info) Description 07/25/2024 Scanned Document [facility] Department of Internal Medicine [address] 1st [place] [phone] Dimitrios Barreto MD [address] [place] [address] [phone] Social History Tobacco Use Types Packs/Day Years [...] Visit [facility] Department of Internal Medicine [place] 18 [facility] 1st [place] [phone] Dimitrios Barreto MD 18 [place] [address] documented as of this encounter Visit Diagnoses Not on filedocumented in this encounter Care Teams Police Detective Relationship Specialty Start Date End Date Dimitrios Barreto MD 18 [place] [address] PCP - General Dimitrios Barreto MD [address] [place] [address] PCP - [facility] Patients 12/30/22 Erwin Palm MD Internal Medicine 07/24/25 documented as of this encounter
--- OUTSIDE RECORDS SUMMARY | 2025-07-25 10:28 | XMS_ITS | Encounter Summary ---
Author Organization [facility] Address [address] [place] [address] Care Team Providers Care Pile Fabric Knitter Name Role Phone Dimitrios Barreto MD Primary Care Provider [phone] Dimitrios Barreto MD Unavailable Erwin Palm MD Unavailable Unava ilable Encounter Details Date Type Department Care Team (Late st Contact Info) Description 09/09/2023 Scanned Document [facility] Department of Internal Medicine [address] [place] [phone] Dimitrios Barreto MD [address] [place] [address] [phone] Social History Tobacco Use Types Packs/Day Years [...] 11:00 AM EST Office Visit [facility] Department of Internal Medicine [address] [place] [phone] Dimitrios Barreto MD [address] [place] [address] documented as of this encounter Visit Diagnoses Not on filedocumented in this encounter Care Teams Pile Fabric Knitter Relationship Specialty Start Date End Date Dimitrios Barreto MD [address] [place] [address] [place] [address] PCP - General Dimitrios Barreto MD [address] [place] [address] [place] [address] PCP - [facility] Patients 12/30/22 Erwin Palm MD Internal Medicine 07/24/25 documented as of this encounter
--- OUTSIDE RECORDS SUMMARY | 2025-07-25 10:28 | XMS_ITS | Clinical Summary ---
Author Organization [address] [place] [address] [place] [phone] Phone Care Team Providers Care Protective Clothing Issuer Name Role Phone Dimitrios Barreto MD Primary Care Provider [phone] Allergies Active Allergy Reactions Criticality Noted Date Comments Atorvastatin 10/05/2023 Unsure of reaction Candesartan 10/05/2023 Unsure of reaction Hydrochlorothiazide 10/05/2023 Unsure of reaction Iodine 10/05/2023 Pt states allergic to injectable iodine Lisinopril 10/05/2023 Unsure of reaction Medications ACETAMINOPHEN ORAL Take 500 mg by mouth every 6 (six) hours if needed. Active calcium carbonate (CALCIUM 600 ORAL) 1 tablet, By Mouth, Daily, # 180 tablet, 0 Refills, Maintenance, 11/18/23 9:37:00 EST, Tablet, Partial fill upon patient request if the prescription is for a schedule II opioid drug. 11/18/20 Active CYANOCOBALAMIN, VITAMIN B-12, ORAL Take by mouth. Active levocetirizine dihydrochloride (LEVOCETIRIZINE ORAL) Take by mouth as needed. Active meloxicam (MOBIC) 15 mg tablet Take 0.5 Tablets by mouth daily. Active metFORMIN (GLUCOPHAGE) 500 mg tablet Take 1 Tablet by mouth. 1 tab in AM 2 tabs in PM Active pantoprazole (PROTONIX) 40 mg EC tablet Take 1 tablet (40 mg total) by mouth 1 (one) time each day in the evening. Active rosuvastatin (CRESTOR) 10 mg tablet Take 1 tablet (10 mg total) by mouth 1 (one) time each day in the evening. Active aspirin 81 mg chewable tablet Chew 1 tablet (81 mg total) 1 (one) time each day. 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 Medical History Medical History Date Comments Heart valve disease HL (hearing loss) hearing aids Shingles past hx Cancer ([facility] V24, [facility] V28) uterine Family History Medical History Relation Name Comments Other: aortic aneurysm Mother Relation Name Status Comments Mother Social History Tobacco Use Types Packs/Day Years Used Date Smoking Tobacco: Never Smokeless Tobacco: Never Tobacco Cessation:Counseling Given: Not Answered Alcohol Use Standard Drinks/Week Comments Yes 0 (1 standard drink = 0.6 oz pur e alcohol) rare Interpersonal Safety Answer Date Record ed Physical Abuse 02/05/2025 Verbal Abuse 02/05/2025 Comments No Sex and Gender Information Value Date Recorded Sex Assigned at Female 02/02/2025 9:42 AM EST Legal Sex Female 8:24 PM EST Gender Identity Female 02/02/2025 9:42 AM EST Sexual Orientation Straight 02/02/2025 9: 42 AM EST Obstetrics History Last Filed Vital Signs Vital Sign Reading Time Taken Comments Blood Pressure 170/90 02/21/2025 10:14 AM EDT Pulse 88 02/05/2025 10:49 AM EDT Temperature 36.7 C (98 F) 02/05/2025 7:47 AM EDT Respiratory Rate 15 02/05/2025 10:49 AM EDT Oxygen Saturation 95% 02/05/2025 10:49 AM EDT Inhaled Oxygen Concentration - - Weight 99.8 kg (220 lb) 02/21/2025 10:14 AM EDT Height 152.4 cm (5') 02/21/2025 10:14 AM EDT Body Mass Index 42.97 02/21/2025 10:14 AM EDT Plan of Treatment Health Maintenance Due Date Last Done Comments Diabetes: Annual Foot Exam 1960 Diabetes: Annual Retina Eye Exam 1960 RSV Immunization Adult Patients (1 - 1-dose 75+ series) 2023 Hepatitis C Screening 12/24/2023 Medicare Annual Wellness Visit 12/24/2023 Osteoporosis Screening (Bone Density Screening) 12/24/2023 Social Influencers of Health Screening 12/24/2023 COVID-19 Vaccine ( season) 2024 08/06/2022, 11/29/2021, 11/03/2021, Additional history exists Diabetes: Blood Sugar Control Test (HGBA1C) 11/04/2024 05/05/2024, 12/16/2023 Depression Screening 11/29/2024 Diabetes: Annual Urine Albumin-Creatinine Ratio (uACR) 05/05/2025 05/05/2024, 05/05/2024 Diabetes: Annual GFR (Glomerular Filtration Rate) 05/05/2025 05/05/2024, 05/05/2024, 12/17/2023, Additional history exists Hypertension/CHF/CAD Annual BMP Blood Test 05/05/2025 05/05/2024, 05/05/2024, 12/17/2023, Additional history exists DTaP,Tdap,and Td Vaccines (2 - Td or Tdap) 07/23/2025 07/23/2015 Influenza Vaccine (#1) 2025 , 08/30/2023, 09/04/2022, Additional history exists Falls Risk Assessment 02/05/2026 02/05/2025 Cholesterol Screening (Lipid Panel) 05/05/2029 05/05/2024 Zoster Vaccines Completed 10/10/2019, 05/29, 06/18/2015 Pneumococcal Vaccine: 50+ Years Completed 10/27/2022, 06/17/2015, 12/07/2013 Colorectal Cancer Screening: Colonoscopy Discontinued 02/05/2025 HIB Vaccines Aged Out No longer eligi ble based on patient's age to complete this topic HPV Vaccines Aged Out No longer eligi ble based on patient's age to complete this topic Hepatitis A Vaccines Aged Out No long er eligible based on patient's age to complete this topic Hepatitis B Vaccines Aged Out No long er eligible based on patient's age to complete this topic IPV Vaccines Aged Out No longer eligi ble based on patient's age to complete this topic MMR Vaccines Aged Out No longer eligi ble based on patient's age to complete this topic Meningococcal ACWY Vaccine Aged Out N o longer eligible based on patient's age to complete this topic Meningococcal B Vaccine Aged Out No l onger eligible based on patient's age to complete this topic RSV Immunization Patients Under 20 months Aged Out No longer eligible based on patient's age to complete this topic Varicella Vaccines Aged Out No longer eligible based on patient's age to complete this topic Medical Devices Implanted Type Area Financial Professional Device Identifier Shelf Expiration Date Model / Serial / Lot Valve Niki 3 Ultra Thv 23mm W Command System [facility] [id number] - [id number] Implanted:Qty: 1 on 12/16/2023 by Dimitrios Martin MD [facility] [employer] 03/08/2026 [id number] / [id number] / Procedures Procedure Name Priority Date/Time Associated Diagnosis Comments COLONOSCOPY Routine 02/05/2025 10:18 AM EDT Hematochezia URINE ALBUMIN CREATININE RATIO Routine 05/05/2024 ANNUAL BMP BLOOD TEST Routine 05/05/2024 HEMOGLOBIN A1C Routine 05/05/2024 LIPID PANEL Routine 05/05/2024 from Last 3 Months or Most Recently Relevant to Health Maintenance Results * COLONOSCOPY Sedation (02/05/2025 10:18 AM EDT) Anatomical Region Laterality Modality Endoscopy 02/05/2025 8:50 AM EDT Impressions 02/05/2025 10:04 AM EDT - Diverticulosis in the left colon. - No specimens collected. Recommendation: - Patient has a contact number available for emergencies. The signs and symptoms of potential delayed complications were discussed with the patient. Return to normal activities tomorrow. Written discharge instructions were provided to the patient. - Resume previous diet. - Continue present medications. - No repeat colonoscopy. - Patient has a contact number available for emergencies. The signs and symptoms of potential delayed complications were discussed with the patient. Return to normal activities tomorrow. Written discharge instructions were provided to the patient. Narrative 02/05/2025 10:04 AM EDT [facility] GI Patient Name: Procedure Date: 02/05/2025 8:50 AM Date of : 1950 Age: 74 Gender: Female Note Status: Finalized Attending MD: Sarah Avina , , Procedure Date No Time: 02/05/2025 Procedure: Colonoscopy Indications: Hematochezia Providers: Sarah Avina (Doctor) Referring MD: Sarah Avina (Referring MD) Medicines: Monitored Anesthesia Care Complications: No immediate complications. Procedure: Pre-Anesthesia Assessment: - Prior to the procedure, a History and Physical was performed, and patient medications, allergies and sensitivities were reviewed. The patient's tolerance of previous anesthesia was reviewed. - The risks and benefits of the procedure and the sedation options and risks were discussed with the patient. All questions were answered and informed consent was obtained. After I obtained informed consent, the scope was passed under direct vision. Throughout the procedure, the patient's blood pressure, pulse, and oxygen saturations were monitored continuously. The Colonoscope Pedi [id number] was introduced through the anus and advanced to the cecum, identified by the appendiceal orifice, ileocecal valve and palpation. The quality of the bowel preparation was evaluated using the BBPS ([place] Bowel Preparation Scale) with scores of: Right Colon = 3, Transverse Colon = 3 and Left Colon = 3 (entire mucosa seen well with no residual staining, small fragments of stool or opaque liquid). The total BBPS score equals 9. The ileocecal valve, appendiceal orifice, and rectum were photographed. The colonoscopy was performed with moderate difficulty due to a redundant colon. Successful completion of the procedure was aided by applying abdominal pressure. The patient tolerated the procedure well. The quality of the bowel preparation was evaluated using the BBPS ([place] Bowel Preparation Scale) with scores of: Right Colon = 3, Transverse Colon = 3 and Left Colon = 3 (entire mucosa seen well with no residual staining, small fragments of stool or opaque liquid). The total BBPS score equals 9. Findings: The perianal and digital rectal examinations were normal. Many small and large-mouthed diverticula were found in the left colon. Procedure Code(s): --- Professional --- 84143, Colonoscopy, flexible; diagnostic, including collection of specimen(s) by brushing or washing, when performed (separate procedure) Diagnosis Code(s): --- Professional --- K92.1, Melena (includes Hematochezia) K57.30, Diverticulosis of large intestine without perforation or abscess without bleeding CPT copyright 2020 [employer]. All rights reserved. The codes documented in this report are preliminary and upon solder leveler printed circuit boards review may be revised to meet current compliance requirements. Attending Participation: I was present and participated during the entire procedure, including non-blas portions. Sarah Avina, 02/05/2025 10:03:51 AM Number of Addenda: 0 Note Initiated On: 02/05/2025 8:50 AM Scope Withdrawal Time: 0 hours 14 minutes 35 seconds Scope In: Scope Out: 10:00:06 AM Endoscopy Department at [place] [id number] Procedure Note Sarah Avina MD - 02/05/2025 [facility] GI Patient Name: Procedure Date: 02/05/2025 8:50 AM Date of : 1950 Age: 74 Gender: Female Note Status: Finalized Attending MD: Sarah Avina , , Procedure Date No Time: 02/05/2025 Procedure: Colonoscopy Indications: Hematochezia Providers: Sarah Avina (Doctor) Referring MD: Sarah Avina (Referring MD) Medicines: Monitored Anesthesia Care Complications: No immediate complications. Procedure: Pre-Anesthesia Assessment: - Prior to the procedure, a History and Physicalwas performed, and patient medications, allergies and sensitivities were reviewed. The patient'stolerance of previous anesthesia was reviewed. - The risks and benefits of the procedure and the sedation options and risks were discussed withthe patient. All questions were answered and informed consent was obtained. After I obtained informed consent, the scope was passed under direct vision. Throughout the procedure, the patient's blood pressure, pulse,and oxygen saturations were monitored continuously.The Colonoscope Pedi [id number] was introduced throughthe anus and advanced to the cecum, identified by the appendiceal orifice, ileocecal valve andpalpation. The quality of the bowel preparation wasevaluated using the BBPS ([place] Bowel Preparation Scale)with scores of: Right Colon = 3, Transverse Colon = 3and Left Colon = 3 (entire mucosa seen well with no residual staining, small fragments of stool or opaque liquid). The total BBPS score equals 9.The ileocecal valve, appendiceal orifice, and rectum were photographed. The colonoscopy was performed with moderate difficulty due to a redundantcolon. Successful completion of the procedure was aidedby applying abdominal pressure. The patienttolerated the procedure well. The quality of the bowel preparation was evaluated using the BBPS ([place] Bowel Preparation Scale) with scores of: RightColon = 3, Transverse Colon = 3 and Left Colon = 3(entire mucosa seen well with no residual staining, small fragments of stool or opaque liquid). The totalBBPS score equals 9. Findings: The perianal and digital rectal examinations were normal. Many small and large-mouthed diverticula werefound in the left colon. Procedure Code(s): --- Professional --- 32282, Colonoscopy, flexible; diagnostic,including collection of specimen(s) by brushing or washing, when performed (separate procedure) Diagnosis Code(s): --- Professional --- K92.1, Melena (includes Hematochezia) K57.30, Diverticulosis of large intestine without perforation or abscess without bleeding CPT copyright 202 [employer]. All rights reserved. The codes documented in this report are preliminary and upon solder leveler printed circuit boards reviewmay be revised to meet current compliance requirements. Attending Participation: I was present and participated during the entire procedure, including non-blas portions. Sarah Avina, 02/05/2025 10:03:51 AM Number of Addenda: 0 Note Initiated On: 02/05/2025 8:50 AM Scope Withdrawal Time: 0 hours 14 minutes 35 seconds Scope In: Scope Out: 10:00:06 AM Endoscopy Department at [address] [address] IMPRESSION: - Diverticulosis in the left colon. - No specimens collected. Recommendation: - Patient has a contact number available for emergencies. The signs and symptoms of potential delayed complications were discussed with the patient. Return to normal activities tomorrow. Written discharge instructions were provided tothe patient. - Resume previous diet. - Continue present medications. - No repeat colonoscopy. - Patient has a contact number available for emergencies. The signs and symptoms of potential delayed complications were discussed with the patient. Return to normal activities tomorrow. Written discharge instructions were provided tothe patient. Result [facility] Sarah Avina MD GI~PROCEDURE ORDERABLES Fin al Result * Urine Albumin Creatinine Ratio (05/05/2024) [facility] Urine Albumin Creatinine Ratio abstracted Result [facility] Provider HEALTH MAINTENANCE Final Result * Annual BMP Blood Test (05/05/2024) [facility] Annual BMP Blood Test abstracted Result [facility] Provider HEALTH MAINTENANCE Final Result * Hemoglobin A1c (05/05/2024) [facility] Hemoglobin A1C 0.0 % Comment:no interpretation, a bstracted Blood Venous blood specimen / Unknown Result [facility] Provider LAB BLOOD ORDERABLES Anne l Result * Lipid panel (05/05/2024) [facility] Triglycerides 0 mg/dL Comment:no interpretation, a bstracted Cholesterol 0 mg/dL Comment:no interpretation, a bstracted HDL 0 mg/dL Comment:no interpretation, a bstracted LDL Cholesterol 0 mg/dL Comment:no interpretation, a bstracted Blood Venous blood specimen / Unknown Result [facility] Provider LAB BLOOD ORDERABLES Anne l Result from Last 3 Months or Most Recently Relevant to Health Maintenance Insurance MEDICARE Member Subscriber Plan / Payer (Ef fective 2013-Present) Name:Salma Alicia Member ID:[id number] Relation to Subscriber:Self Name:Salma Alicia Subscriber ID:[id number] Payer ID:Not on file Group ID:Not on file Type:Medicare Address: [place] [id number] [facility] MEDICARE Member Subscriber Plan / Payer (Ef fective 2013-Present) Name:Salma Alicia Member ID:[id number] Relation to Subscriber:Self Name:Salma Alicia Subscriber ID:[id number] Payer ID:Not on file Group ID:Not on file Type:Medicare Address: [address] Advance Directives * Full Code - Default (Latest Code Status on File) Date Activated Date Inactivated Comments 02/05/2025 8:07 AM 02/09/2025 4:48 AM This is orde r is used when code status has not been discussed with the patient, or code status is otherwise unknown/unconfirmed To update the patient's code status, place a code status order. Do not modify or discontinue any currently active code status orders. Care Teams Protective Clothing Issuer Relationship Specialty Start Date End Date Dimitrios Barreto MD [address] [place] [id number] PCP - General 11/23/23
--- OUTSIDE RECORDS SUMMARY | 2025-07-25 10:28 | XMS_ITS | Encounter Summary ---
Author Organization [facility] Address [address] [place] [id number] Care Team Providers Care Equip Tech Name Role Phone Dimitrios Barreto MD Primary Care Provider Dimitrios Barreto MD Unavailable [phone] Erwin Palm MD Unavailable Unava ilable Encounter Details Date Type Department Care Team (Late st Contact Info) Description 12/02/2023 Scanned Document [facility] Department of Internal Medicine [address] [place] [phone] Dimitrios Barreto MD [address] [place] [phone] Social History Tobacco Use Types Packs/Day Years [...] Visit [facility] Department of Internal Medicine [address] [facility] 1st [place] [phone] Dimitrios Barreto MD [address] [place] [address] documented as of this encounter Visit Diagnoses Not on filedocumented in this encounter Care Teams Equip Tech Relationship Specialty Start Date End Date Dimitrios Barreto MD [address] [place] [address] PCP - General Dimitrios Barreto MD [address] [place] [address] PCP - [facility] 12/30/22 Erwin Palm MD Internal Medicine 07/24/25 documented as of this encounter
--- OUTSIDE RECORDS SUMMARY | 2025-07-25 10:28 | XMS_ITS | Clinical Summary ---
Author Organization Formerly [facility] Address [address] [place] [address] Care Team Providers Care Mangle Roller Name Role Phone Dimitrios Barreto MD Primary Care Provider [phone] Dimitrios Barreto MD Unavailable [phone] Erwin Palm MD Unavailable Unava ilable Allergies Active Allergy Reactions Criticality Noted Date Comments Atorvastatin Myalgia/Myositis/Art hralgia/Arthr itis Low 04/28/2023 Candesartan Itching Low 04/28/2023 Hydrochlorothiazide Unknown/Patient and Family Unable to Define Medium 04/28/2023 Iodine Itching Low 04/28/2023 Lisinopril Cough Low 04/28/2023 Simvastatin GI Intolerance/Nausea/Vomiting Low 03/31 Medications calcium carbonate (CALTRATE) 1500 (600 Ca) MG tablet Take 1 tablet by mouth daily. 7 Active aspirin enteric coated (ECOTRIN LOW STRENGTH) 81 MG EC tablet Take 81 mg by mouth. 4 Active cetirizine (ZyrTEC) 10 MG chewable tablet Chew 10 mg daily. Active rosuvastatin (CRESTOR) 10 MG tabletIndication s:Primary hypertension Take 1 tablet (10 mg total) by mouth daily. 90 tablet 3 4 Active PANTOprazole (PROTONIX) 40 MG EC tabletIndication s:Gastroesophage al reflux disease without esophagitis TAKE 1 TABLET BY MOUTH AT DINNERTIME EVERY DAY 90 tablet 1 5 Active metFORMIN (GLUCOPHAGE-XR) 500 MG 24 hr tabletIndication s:Type 2 diabetes mellitus with hyperglycemia, without long-term current use of insulin (HCC) 1 tab po q am, and 2 tabs po q dinnertime, Swallow whole. Do not crush, break or chew. 270 tablet 3 5 Active amLODIPine (NORVASC) 5 MG tabletIndication s:Primary hypertension Take 1 tablet (5 mg total) by mouth daily. 30 tablet 3 5 Active loratadine (CLARITIN) 10 MG tablet Take by mouth. 5 025 Discontin ued(Med List Clean-up/ Old Med - No E-Cancel/ No AVS) Active Problems Problem Noted Date Diagnosed Date History of transcatheter aortic valve replacemen t (TAVR) 02/19/2025 Blood in stool 12/28/2024 Morbid obesity 07/27/2024 Status post transcatheter ao rtic valve replacement (TAVR) using bioprosthesis 05/17/2024 Vision changes 11/16/2023 History of uterine cancer 11/16/20232022 Primary osteoarthritis of left knee 11/16/2023 Memory changes 11/16/2023 Gastroesophageal reflux disease without esophagi tis 05/06/2023 Hyperlipidemia 04/28/2023 04/28/2023 Hypertension 04/28/2023 04/28/2023 Nonrheumatic aortic valve stenosis 04/28/2023 04/28/2023 Type 2 diabetes mellitus wit h hyperglycemia, without long-term current use of insulin 04/28/2023 04/28/2023 Resolved Problems Problem Noted Date Diagnosed Date Resolved Date Vestibular neuronitis 12/09/20232023 Encounters Date Type Department Care Team Description 07/19/2025 Orders Only [facility] [address] [place] [address] Dimitrios Barreto MD 07/18/2025 11:15 AM EDT Office Visit [facility] Department of Internal Medicine [address] 1st [place] [address] Dimitrios Barreto MD Dizziness (Primary Dx); Shortness of breath; Primary hypertension ; Type 2 diabetes mellitus with hyperglycemia, without long-term current use of insulin (HCC) 06/08/2025 Refill [facility] Department of Internal Medicine [address] 1st [place] [address] Dimitrios Barreto MD Type 2 diabetes mellitus with hyperglycemia, without long-term current use of insulin (HCC) 06/08/2025 Refill [facility] Department of Internal Medicine [address]st [facility] [place] [address] Dimitrios Barreto MD Type 2 diabetes mellitus with hyperglycemia, without long-term current use of insulin ([facility]) from Last 3 Months Immunizations Immunization Administration Dates Next Due Covid-19 mRNA Bivalent Vacci ne - Moderna 50 mcg/0.5mL 12+ 11/29/2021 Covid-19 mRNA Primary Series Vaccine - Moderna 0.5 mL Full Dose 02/20/2021,01/23/2021,11/29/2020 Influenza High-Dose Quadriva lent,(FLUZONE HIGH-DOSE), Perservative Free IM 0.7 mL 65 years and older 11/29/2021,09/27/2018 Influenza Inactivated/Split Preservative Free IM 09/17/2012,10/14/2011,09/20/2010 Influenza, Quadrivalent (FLU AD) Adjuvanted Preservative Free IM 65 years and older 08/11/2016 Influenza, Quadrivalent (FLU ARIX, AFLURIA, FLULAVAL, FLUZONE) Preservative Free IM 06/30/2017 Pneumococcal Conjugate 13-Valent 06/17/2015 Pneumococcal Conjugate 20-Valent 10/27/2022 Pneumococcal Polysaccharide 23-Valent 12/07/2013 Tdap 07/23/2015 Zoster Vaccine Live/Attenuated (Zostavax) 2014 Zoster Vaccine Recombinant (Shingrix) 06/16/2019 Family History Medical History Relation Name Comments Emphysema Father Aortic aneurysm Mother Testicular cancer Son Relation Name Status Comments Father Mother Son Alive Social History Tobacco Use Types Packs/Day Years Used Date Smoking Tobacco: Never Smokeless Tobacco: Never Tobacco Cessation:Counseling Given: Not Answered Alcohol Use Standard Drinks/Week Comments Not Currently [...] Sign Reading Time Taken Comments Blood Pressure 142/88 07/18/2025 11:07 AM EDT Pulse 83 07/18/2025 11:07 AM EDT Temperature 36.3 C (97.3 F) 07/18/2025 11:07 AM EDT Respiratory Rate 18 04/14/2025 3:05 PM EDT Oxygen Saturation 97% 07/18/2025 11:07 AM EDT Inhaled Oxygen Concentration - - Weight 99 kg (218 lb 3.2 oz) 07/18/2025 11:07 AM EDT Height 162.6 cm (5' 4 ) 04/14/2025 3:05 PM EDT Body Mass Index 37.45 04/14/2025 3:05 PM EDT Plan of Treatment Upcoming Encounters Date Type Department Care Team (Late st Contact Info) Description 11/19/2025 11:00 AM EST Office Visit [facility] Department of Internal Medicine [address] 1st [place] [phone] Dimitrios Barreto MD [address] [place] [id number] Health Maintenance Due Date Last Done Comments Advance Care Planning 1950 Hepatitis C Virus Screening 1950 Foot Exam 1958 Ophthalmology Exam 1958 DXA Bone Density (Females,Ages 65 and older) 2013 Zoster (Shingles) Vaccine (3 of 3) 08/11/2019 06/16/2019, 06/18/2015 RSV Vaccine 60 years and older and Patients (1 - 1-dose 75+ series) 2023 COVID-19 Vaccine ( season) 2024 11/29/2021, 02/20/2021, 01/23/2021, Additional history exists Influenza Vaccine 06/29/2025 11/29/2021, , 06/30/2017, Additional history exists DTaP/Tdap/Td Vaccines (2 - Td or Tdap) 07/23/2025 07/23/2015 Lipid Panel 11/10/2025 11/10/2024, 06/0 05/2024, 11/03/2023, Additional history exists Hemoglobin A1C 01/18/2026 07/18/2025, 03/2 06/2025, 11/10/2024, Additional history exists Microalbumin/Creatinine Ratio Urine 02/23/2026 02/23/2025, 05/05/2024 Creatinine with GFR 07/18/2026 07/18/2025, 02/23/2025, 12/28/2024, Additional history exists Pneumococcal Vaccines 50+ Completed 2021, 06/17/2015, 12/07/2013 Hepatitis B Vaccines Aged Out No long er eligible based on patient's age to complete this topic Procedures Procedure Name Priority Date/Time Associated Diagnosis Comments XR CHEST 2 VIEWS PA/LAT Routine 07/19/2025 3:21 PM EDT PROBNP, N-TERMINAL Routine 07/19/2025 12 :00 AM EDT Shortness of breath HEMOGLOBIN A1C WITH ESTIMATED AVERAGE GLUCOSE Routine 07/18/2025 12:05 PM EDT Type 2 diabetes mellitus with hyperglycemia, without long-term current use of insulin (HCC) COMPREHENSIVE METABOLIC PANEL Routine 07/18/2025 12:05 PM EDT Dizziness COMPLETE BLOOD COUNT, WITH DIFFERENTIAL Routine 07/18/2025 12:05 PM EDT Dizziness ECG 12-LEAD Routine 07/18/2025 11:11 AM EDT Dizziness MICROALBUMIN, CREATININE, URINE, RANDOM Routine 02/23/2025 9:35 AM EDT Type 2 diabetes mellitus with hyperglycemia, without long-term current use of insulin (HCC) LIPID PANEL Routine 11/10/2024 9:24 AM EST Type 2 diabetes mellitus with hyperglycemia, without long-term current use of insulin (HCC) from Last 3 Months or Most Recently Relevant to Health Maintenance Results * XR CHEST 2 VIEWS PA/LAT (07/19/2025 3:21 PM EDT) Anatomical Region Laterality Modality Other 07/19/2025 3:45 PM EDT 07/19/2025 3:45 PM EDT Impressions 07/20/2025 10:18 AM EDT No acute pulmonary pathology. Electronically signed by: Bright White MD 07/20/2025 10:18 AM EDT RP Thank you for referring your patient to us, Bright White MD [phone] (Electronically Signed - 07/20/2025 10:18) Narrative 07/20/2025 10:18 AM EDT EXAMINATION: XR CHEST CLINICAL INFORMATION: Shortness of breath x 1 week. COMPARISON: None available. TECHNIQUE: 2 views of the chest were obtained. FINDINGS: Cardiac silhouette is normal in size. Patient is status post TAVR. The lungs are well aerated. There is no lobar consolidation. No pleural effusion or pneumothorax. Moderate degenerative changes of the spine. Surgical clips of the right upper abdomen are most consistent with prior cholecystectomy. Procedure Note Bright White III, MD - 07/20/2025 EXAMINATION: XR CHEST CLINICAL INFORMATION: Shortness of breath x 1 week. COMPARISON: None available. TECHNIQUE: 2 views of the chest were obtained. FINDINGS: Cardiac silhouette is normal in size. Patient is status post TAVR. Thelungs are well aerated. There is no lobar consolidation. No pleuraleffusion or pneumothorax. Moderate degenerative changes of the spine.Surgical clips of the right upper abdomen are most consistent with prior cholecystectomy. IMPRESSION: No acute pulmonary pathology. Electronically signed by: Bright White MD 07/20/2025 10:18 AM EDT RPWorkstation: [id number] Thank you for referring your patient to us, Bright White MD [phone] (Electronically Signed - 07/20/2025 10:18) Dimitrios Barreto MD IMG LEGACY PROCEDURES Final R esult * proBNP, N-terminal (07/19/2025 12:00 AM EDT) proBNP, N-terminal 184 0 - 738 pg/mL [facility] Comment: The following cut-points have been suggested for the use of proBNP for the diagnostic evaluation of heart failure (HF) in patients with acute dyspnea: Modality Age Optimal Cut (years) Point Diagnosis (rule in HF) <50 450 pg/mL 50 - 75 900 pg/mL >75 1800 pg/mL Exclusion (rule out HF) Age independent 300 pg/mL Blood Blood specimen / Unknown 07/19/2025 07/19/2025 Comment:Blood Narrative [facility] ([place]) - 07/19/2025 12:06 PM EDT Performed at: 01 - [facility] [id number] Software Consultant: Unique Garcia MD, Phone: [phone] Dimitrios Barreto MD LAB BLOOD ORDERABLES Final Re sult [facility] ([place]) [facility] * (ABNORMAL) Hemoglobin A1C with Estimated Average Glucose (07/18/2025 12:05 PM EDT) Hemoglobin A1C 7.2(H) 4.2 - 5.6 % of total Hgb [facility] Comment: HbA1c levels below the established reference range may indicate recent episodes of hypoglycemia, the presence of Hb variants or shortened lifespan of red cells. Clinical correlation and/or hemoglobin electrophoresis may be indicated. Estimated Average Glucose (mg/dL) 160 mg/dL [facility] Estimated Average Glucose (mmol/L) 8.9 mmol/L [facility] Blood Blood specimen / Unknown 07/18/2025 12:05 PM EDT 07/18/2025 7:57 PM EDT us Dimitrios Barreto MD LAB BLOOD ORDERABLES Final Re sult [facility] [address] [place] [id number], * (ABNORMAL) Complete Blood Count, with Differential (07/18/2025 12:05 PM EDT) WBC 8.14 4.00 - 11.00 Thousand/u L [facility] RBC 4.98 4.04 - 5.48 Million/uL [facility] Hemoglobin 11.6(L) 12.0 - 14.1 g/dL [facility] Hematocrit 39.4 33.5 - 43.3 % [facility] MCV 79.1(L) 80.0 - 97.0 fL [facility] MCH 23.3(L) 27.0 - 31.2 pg [facility] MCHC 29.4(L) 31.8 - 35.4 g/dL [facility] RDW-CV 15.1(H) 11.6 - 14.8 % [facility] Platelet Count 355.0 142.0 - 424.0 Thousand/u L [facility] MPV 10.6 8.0 - 13.0 fL [facility] Neutrophil % 67.6 37.0 - 80.0 % [facility] Lymph % 21.6 10.0 - 50.0 % [facility] Monocytes % 7.1 1.0 - 11.9 % [facility] Eosinophils, % 2.9 0.0 - 6.9 % [facility] Basophils, % 0.6 0.0 - 2.4 % [facility] Absolute Neutrophil Count 5.5 2.0 - 6.9 Thousand/u L [facility] Absolute Lymphocytes 1.8 0.6 - 3.4 Thousand/u L [facility] Absolute Monocytes 0.6 0.1 - 0.8 Thousand/u L [facility] Absolute Eosinophils 0.2 0.0 - 0.6 Thousand/u L [facility] Absolute Basophils 0.1 0.0 - 0.1 Thousand/u L [facility] Immature Granulocytes 0.200 0.001 - 0.900 % [facility] Abs Immature Granulocytes 0.0200 0.0000 - 0.0700 Thousand/u L [facility] Nucleated RBCS (%) 0.0 0.0 - 0.2 % [facility] NRBC, Absolute 0.000 0.000 - 0.012 Thousand/u L [facility] Blood Blood specimen / Unknown 07/18/2025 12:05 PM EDT 07/18/2025 7:57 PM EDT us Dimitrios Barreto MD LAB BLOOD ORDERABLES Final Re sult [facility] [address] [place] [id number], * (ABNORMAL) Comprehensive Metabolic Panel (07/18/2025 12:05 PM EDT) Glucose 185(H) 70 - 99 mg/dL [facility] Blood Urea Nitrogen 15 7 - 22 mg/dL [facility] Creatinine, Ser 0.7 0.5 - 1.2 mg/dL [facility] Bun / Creat Ratio 21 11 - 30 [facility] Sodium 141 133 - 145 mmol/L [facility] Potassium 4.4 3.3 - 5.1 mmol/L [facility] Chloride 104 96 - 108 mmol/L [facility] CO2 23 22 - 31 mmol/L [facility] Anion Gap 14 3 - 19 mmol/L [facility] Calcium 9.6 8.8 - 10.6 mg/dL [facility] Total Protein 6.9 6.0 - 8.3 g/dL [facility] Albumin 4.3 3.2 - 4.8 g/dL [facility] Globulin 2.6 2.0 - 3.5 g/dL [facility] Albumin/Globulin Ratio 1.7 1.0 - 5.0 [facility] Aspartate Aminotrans (AST) 19 8 - 37 IU/L [facility] Alanine Aminotrans (ALT) 17 5 - 40 IU/L [facility] Alkaline Phosphatase 141 37 - 145 IU/L [facility] Bilirubin, Total 0.3 0.0 - 1.0 mg/dL [facility] GFR Estimated (calculated) >60 >60 [facility] Comment: As of 2021, the [facility] has updated the creatinine- based estimated glomerular filtration rate (eGFRcr) to the updated CKD-EPI 2021 equation. This change removes the race coefficient of the older calculation, and was made based on recommendations from the National Kidney Foundation and the [place] [employer]'s Task Force. The new eGFRcr has similar overall performance characteristics to the older equation and has been assessed to not have potential consequences that disproportionately affect any one group of individuals. However, some mild variation from the older eGFR equation can be expected especially in younger age patients and at higher eGFRcr values. Blood Blood specimen / Unknown 07/18/2025 12:05 PM EDT 07/18/2025 7:57 PM EDT Dimitrios Barreto MD LAB BLOOD ORDERABLES Final Re sult Performing Organization Address [facility] [place] [address], * ECG 12 lead (07/18/2025 11:11 AM EDT) 07/18/2025 11:1 1 AM EDT Dimitrios Taylor MD - 07/18/2025 11:11 AM EDT Normal sinus rhythm 83 normal intervals no ischemia Dimitrios Barreto MD ECG ORDERABLES Final Result * Microalbumin, Creatinine, Urine, Random (02/23/2025 9:35 AM EDT) Microalbumin,Ur ine 15 mg/L [facility] Comment: Reference range not established. Creatinine, Urine 170.1 mg/dL [facility] Comment: 1st Morning Urine: Male: 39 - 259 mg/dL Female: 28 - 217 mg/dL Microalbumin/Cr eatinine Ratio 8.8 <30.0 mg/g CREAT [facility] Urine Urine specimen / Unknown 02/23/2025 9:35 AM EDT 02/23/2025 5:20 PM EDT Dimitrios Barreto MD URINE ORDERABLES Final Result Performing Organization Address [facility]/[place] [address], [place] * (ABNORMAL) LIPID PANEL (11/10/2024 9:24 AM EST) Cholesterol, Total 183 112 - 239 mg/dL [facility] Triglycerides 325(H) <150 mg/dL [facility] Total Hdl-C Direct 42 40 - 120 mg/dL [facility] LDL Cholesterol 76 57 - 130 mg/dL [facility] Comment: Limitations: Triglycerides >or= 400 mg/dl, samples containing significant amounts of chylomicrons (nonfasting specimen), or in patients with type III hyperlipoproteinemia this calculated LDL may be invalid and a direct LDL is recommended. Risk Factor 4.4 3.3 - 5.0 [facility] Non HDL Cholesterol 141 [facility] Blood Blood specimen / Unknown 11/10/2024 9:24 AM EST 11/10/2024 5:05 PM EST us Dimitrios Barreto MD LAB BLOOD ORDERABLES Final Re sult Performing Organization Address City/State/[facility] Co de Phone Number [facility] [address] [place] [address] from Last 3 Months or Most Recently Relevant to Health Maintenance Insurance MEDICARE PART A & B [facility] MEDICARE PART A & B BLUE CROSS OUT [facility] Care Teams Mangle Roller Relationship Specialty Start Date End Date Dimitrios Barreto MD [address] [facility] [place] [address] PCP - General Dimitrios Barreto MD [address] [facility] [place] [address] PCP - [facility] Medicare Patients 12/30/22 Erwin Palm MD Internal Medicine 07/24/25
--- OUTSIDE RECORDS SUMMARY | 2025-07-25 10:28 | XMS_ITS | Encounter Summary ---
Author Organization [facility] Address [address] [place] [address] Care Team Providers Care Apprentice Funeral Director Name Role Phone Dimitrios Barreto MD Primary Care Provider [phone] Dimitrios Barreto MD Unavailable [phone] Erwin Palm MD Unavailable Unava ilable Encounter Details Date Type Department Care Team (Late st Contact Info) Description 12/14/2023 Scanned Document [facility] Department of Internal Medicine [address] 1st [place] [phone] Dimitrios Barreto MD [address] [place] [phone] Social History Tobacco Use Types Packs/Day Years [...] Visit [facility] Department of Internal Medicine [place] [address] [facility] 1st [place] [phone] Dimitrios Barreto MD [address] [place] [address] documented as of this encounter Visit Diagnoses Not on filedocumented in this encounter Care Teams Apprentice Funeral Director Relationship Specialty Start Date End Date Dimitrios Barreto MD [address] [place] [address] PCP - General Dimitrios Barreto MD [address] [place] [address] PCP - [facility] Patients 12/30/22 Erwin Palm MD Internal Medicine 07/24/25 documented as of this encounter
--- OUTSIDE RECORDS SUMMARY | 2025-07-25 10:28 | XMS_ITS | Encounter Summary ---
Author Organization [facility] Address [address] [place] [address] Care Team Providers Care Engineering Administrator Name Role Phone Dimitrios Barreto MD Primary Care Provider Dimitrios Barreto MD Unavailable [phone] Erwin Palm MD Unavailable Unava ilable Encounter Details Date Type Department Care Team (Late st Contact Info) Description 04/10/2024 Scanned Document [facility] Department of Internal Medicine [address] 1st [place] [phone] Dimitrios Barreto MD [address] [place] [phone] Social History Tobacco Use Types Packs/Day Years [...] Visit [facility] Department of Internal Medicine [place] [address] [facility] 1st [place] [phone] Dimitrios Barreto MD [address] [place] [address] documented as of this encounter Visit Diagnoses Not on filedocumented in this encounter Care Teams Engineering Administrator Relationship Specialty Start Date End Date Dimitrios Barreto MD [address] [place] [address] PCP - General Dimitrios Barreto MD [address] [place] [address] PCP - [facility] Medicare Patients 12/30/22 Erwin Palm MD Internal Medicine 07/24/25 documented as of this encounter
== END 2025-07-25 09:52 | disposition home or self-care (01) ==
LOC: HO.HMGAL 09:49
PROVIDERS: PCP Registered Nurse Emergency; Visit Provider Registered Nurse Emergency
DX: J30.89 Other allergic rhinitis (principal)
CPT/HCPCS: 95117; 95165

== ENCOUNTER 2025-08-20 10:14 | Outpatient (AMB) | payer MEDICARE, SELFPAY ==
--- OUTSIDE RECORDS SUMMARY | 2025-04-14 15:20 | XMS_ITS | Encounter Summary ---
Author Organization [facility] Address [address] [place] [address] Care Team Providers Care Biological Photographer Name Role Phone Dimitrios Barreto MD Primary Care Provider [phone] Dimitrios Barreto MD Unavailable [phone] Encounter Details Date Type Department Care Team (Late Contact Info) Description 04/14/2025 3:20 PM EDT Hospital Encounter [facility] [place] [facility] [address] [place] [phone] Sunny Taylor MD [address] [place] [address] Social History Tobacco Use Types [...] Visit [facility] Department of Internal Medicine [address] [place] [phone] Dimitrios Barreto MD [address] [place] [address] documented as of this encounter Procedures Procedure [...] on filedocumented in this encounter Care Teams Biological Photographer Relationship Specialty Start Date End Date Dimitrios Barreto MD [address] [place] [id number] PCP - General Dimitrios Barreto MD [address] [place] [address] PCP - [facility] Medicare Patients 12/30/22 documented as of this encounter
--- OUTSIDE RECORDS SUMMARY | 2025-08-20 12:33 | XMS_ITS | Clinical Summary ---
Author Organization [address] [place] [address] [place] [phone] Phone Care Team Providers Care Radiator Fitter Name Role Phone Dimitrios Barreto MD Primary Care Provider [phone] Allergies Active Allergy Reactions Criticality Noted Date [...] Overview (11/07/2024): Nonsignificant Type 2 diabetes mellitus ([facility] V24, [facility] V 28) 12/30/2023 SOB (shortness of breath) 11/02/2023 GERD (gastroesophageal reflux disease) Surgical History Surgery Date Site/Laterality Comments HYSTERECTOMY CATARACT EXTRACTION Bilateral CHOLECYSTECTOMY JOINT REPLACEMENT Left knee CARDIAC VALVE REPLACEMENT 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 Medical History Medical History Date Comments Heart valve disease HL (hearing loss) hearing aids Shingles past hx 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, [facility] V28) uterine Family History Medical History Relation [...] 12/24/2023 Social Influencers of Health Screening 12/24/2023 Diabetes: Blood Sugar Control Test (HGBA1C) 11/04/2024 05/05/2024, 12/16/2023 Depression Screening 11/29/2024 Diabetes: Annual Urine Albumin-Creatinine Ratio (uACR) 05/05/2025 05/05/2024, 05/05/2024 Diabetes: Annual GFR (Glomerular Filtration Rate) 05/05/2025 05/05/2024, 05/05/2024, 12/17/2023, Additional history exists Hypertension/CHF/CAD Annual BMP Blood Test 05/05/2025 05/05/2024, 05/05/2024, 12/17/2023, Additional history exists DTaP,Tdap,and Td Vaccines (2 - Td or Tdap) 07/23/2025 07/23/2015 COVID-19 Vaccine ( season) 2025 08/06/2022, 11/29/2021, 11/03/2021, Additional history exists Influenza Vaccine (#1) 2025 , 08/30/2023, 09/04/2022, [...] this topic Medical Devices Implanted Type Area Case Assembler Device Identifier Shelf Expiration Date Model / Serial / Lot Valve Niki 3 Ultra Thv 23mm W Command System [facility] [id number] - [id number] Implanted:Qty: 1 on 12/16/2023 by Dimitrios Martin MD [facility] [employer] 03/08/2026 [id number] / [id number] / Procedures Procedure Name Priority Date/Time Associated [...] the patient. Narrative 02/05/2025 10:04 AM EDT [facility] Patient Name: Procedure Date: 02/05/2025 8:50 [...] saturations were monitored continuously. The Colonoscope Pedi [id number] was introduced through the anus and advanced to the cecum, identified by the appendiceal orifice, ileocecal valve and palpation. The quality of the bowel preparation was evaluated using the BBPS ([place] Bowel Preparation Scale) with scores of: Right [...] bowel preparation was evaluated using the BBPS ([place] Bowel Preparation Scale) with scores of: Right [...] left colon. Procedure Code(s): --- Professional --- 21623, Colonoscopy, flexible; diagnostic, including collection of specimen(s) by brushing or washing, when performed (separate procedure) Diagnosis Code(s): --- Professional --- K92.1, Melena (includes Hematochezia) K57.30, Diverticulosis of large intestine without perforation or abscess without bleeding CPT copyright 2020 [employer]. All rights reserved. The codes documented in this report are preliminary and upon quartz miner blasting review may be revised to meet current compliance requirements. Attending Participation: I was present and participated during the entire procedure, including non-blas portions. Sarah Avina, 02/05/2025 10:03:51 AM Number of Addenda: 0 Note Initiated On: 02/05/2025 8:50 AM Scope Withdrawal Time: 0 hours 14 minutes 35 seconds Scope In: Scope Out: 10:00:06 AM Endoscopy Department at [place] [id number] Procedure Note Sarah Avina MD - 02/05/2025 [facility] Patient Name: Procedure Date: 02/05/2025 8:50 [...] oxygen saturations were monitored continuously.The Colonoscope Pedi [id number] was introduced throughthe anus and advanced to the cecum, identified by the appendiceal orifice, ileocecal valve andpalpation. The quality of the bowel preparation wasevaluated using the BBPS ([place] Bowel Preparation Scale)with scores of: Right Colon [...] bowel preparation was evaluated using the BBPS ([place] Bowel Preparation Scale) with scores of: RightColon = 3, Transverse Colon = 3 and Left Colon = 3(entire mucosa seen well with no residual staining, small fragments of stool or opaque liquid). The totalBBPS score equals 9. Findings: The perianal and digital rectal examinations were normal. Many small and large-mouthed diverticula werefound in the left colon. Procedure Code(s): --- Professional --- 23383, Colonoscopy, flexible; diagnostic,including collection of specimen(s) by brushing or washing, when performed (separate procedure) Diagnosis Code(s): --- Professional --- K92.1, Melena (includes Hematochezia) K57.30, Diverticulosis of large intestine without perforation or abscess without bleeding CPT copyright 202 [employer]. All rights reserved. The codes documented in this report are preliminary and upon quartz miner blasting reviewmay be revised to meet current compliance requirements. Attending Participation: I was present and participated during the entire procedure, including non-blas portions. Sarah Avina, 02/05/2025 10:03:51 AM Number of Addenda: 0 Note Initiated On: 02/05/2025 8:50 AM Scope Withdrawal Time: 0 hours 14 minutes 35 seconds Scope In: Scope Out: 10:00:06 AM Endoscopy Department at [address] [address] IMPRESSION: - Diverticulosis in the left colon. [...] discharge instructions were provided tothe patient. Result [facility] Sarah Avina MD GI~PROCEDURE ORDERABLES Fin al Result * Urine Albumin Creatinine Ratio (05/05/2024) [facility] Urine Albumin Creatinine Ratio abstracted Result [facility] Provider HEALTH MAINTENANCE Final Result * Annual BMP Blood Test (05/05/2024) [facility] Annual BMP Blood Test abstracted Result [facility] Provider HEALTH MAINTENANCE Final Result * Hemoglobin A1c (05/05/2024) [facility] Hemoglobin A1C 0.0 % Comment:no interpretation, a bstracted Blood Venous blood specimen / Unknown Result [facility] Provider LAB BLOOD ORDERABLES Anne l Result * Lipid panel (05/05/2024) [facility] Triglycerides 0 mg/dL Comment:no interpretation, a [...] Payer (Ef fective 2013-Present) Name:Salma Alicia Member ID:[id number] Relation to Subscriber:Self Name:Salma Alicia Subscriber ID:[id number] Payer ID:Not on file Group ID:Not on file Type:Medicare Address: [place] [id number] [facility] MEDICARE Member Subscriber Plan / Payer (Ef fective 2013-Present) Name:Salma Alicia Member ID:[id number] Relation to Subscriber:Self Name:Salma Alicia Subscriber ID:[id number] Payer ID:Not on file Group ID:Not on file Type:Medicare Address: [address] Advance Directives * Full Code - [...] currently active code status orders. Care Teams Radiator Fitter Relationship Specialty Start Date End Date Dimitrios Barreto MD [address] [place] [address] PCP - General 11/23/23
--- OUTSIDE RECORDS SUMMARY | 2025-08-20 12:34 | XMS_ITS | Clinical Summary ---
Author Organization [facility] Address [address] [place] [address] Care Team Providers Care Valve Assembler Name Role Phone Dimitrios Barreto MD Primary Care Provider [phone] Allergies Active Allergy Reactions Criticality Noted Date [...] this topic Medical Devices Implanted Type Area Roguer Device Identifier Shelf Expiration Date Model / Serial / Lot Valve Niki 3 Ultra Thv 23mm W Command System [facility] [id number] - [id number] Implanted:Qty: 1 on 12/16/2023 by Dimitrios Martin MD at [facility] and [employer] 03/08/2026 [id number] / [id number] / Advance Directives For more information, please contact: [phone] Latest Code Status on File Code Status [...] way: discussion with patient . Care Teams Valve Assembler Relationship Specialty Start Date End Date Dimitrios Barreto MD [address] [place] [facility] FRANCES Cifuentes [id number] PCP - General Internal Medicine 11/23/23
--- OUTSIDE RECORDS SUMMARY | 2025-08-20 12:34 | XMS_ITS | Encounter Summary ---
Author Organization [facility] Address [address] [place] [address] Care Team Providers Care Mill Roll Rewinder Name Role Phone Dimitrios Barreto MD Primary Care Provider Dimitrios Barreto MD Unavailable [phone] Erwin Palm MD Unavailable Unava ilable Encounter Details Date Type Department Care Team (Late st Contact Info) Description 12/31/2023 Scanned Document [facility] Department of Internal Medicine [address] 1st [place] [phone] Dimitrios Barreto MD [address] [place] [address] [phone] Social History Tobacco Use Types Packs/Day Years [...] Visit [facility] Department of Internal Medicine [place] 18 [facility] 1st [place] [phone] Dimitrios Barreto MD [address] [place] [address] documented as of this encounter Visit Diagnoses Not on filedocumented in this encounter Care Teams Mill Roll Rewinder Relationship Specialty Start Date End Date Dimitrios Barreto MD [address] [place] [address] PCP - General Dimitrios Barreto MD [address] [place] [address] PCP - [facility] Patients 12/30/22 Erwin Palm MD Internal Medicine 07/24/25 documented as of this encounter
--- OUTSIDE RECORDS SUMMARY | 2025-08-20 12:34 | XMS_ITS | Encounter Summary ---
Author Organization [facility] Address [address] [place] [address] Care Team Providers Care Textile Finisher Name Role Phone Dimitrios Barreto MD Primary Care Provider Dimitrios Barreto MD Unavailable Erwin Palm MD Unavailable Unava ilable Encounter Details Date Type Department Care Team (Late st Contact Info) Description 09/09/2023 Scanned Document [facility] Department of Internal Medicine [address] [place] [phone] Dimitrios Barreto MD [address] [place] [address] [phone] Social History Tobacco Use Types Packs/Day Years [...] Description 11/19/2025 11:00 AM EST Office Visit [facility] Department of Internal Medicine [address] [place] [phone] Dimitrios Barreto MD [address] [place] [address] documented as of this encounter Visit Diagnoses Not on filedocumented in this encounter Care Teams Textile Finisher Relationship Specialty Start Date End Date Dimitrios Barreto MD [address] [place] [address] [place] [address] PCP - General Dimitrios Barreto MD [address] [place] [address] [place] [address] PCP - [facility] Patients 12/30/22 Erwin Palm MD Internal Medicine 07/24/25 documented as of this encounter
--- OUTSIDE RECORDS SUMMARY | 2025-08-20 12:34 | XMS_ITS | Encounter Summary ---
Author Organization [facility] Address [address] [place] [address] Care Team Providers Care Digital Marketing Officer Name Role Phone Dimitrios Barreto MD Primary Care Provider Dimitrios Barreto MD Unavailable [phone] Erwin Palm MD Unavailable Unava ilable Encounter Details Date Type Department Care Team (Late st Contact Info) Description 12/14/2023 Scanned Document [facility] Department of Internal Medicine [address] 1st [place] [phone] Dimitrios Barreto MD [address] [place] [phone] Social History Tobacco Use Types Packs/Day Years [...] Visit [facility] Department of Internal Medicine [place] 18 [facility] 1st [place] [phone] Dimitrios Barreto MD [address] [place] [address] documented as of this encounter Visit Diagnoses Not on filedocumented in this encounter Care Teams Digital Marketing Officer Relationship Specialty Start Date End Date Dimitrios Barreto MD [address] [place] [address] PCP - General Dimitrios Barreto MD [address] [place] [address] PCP - [facility] Patients 12/30/22 Erwin Palm MD Internal Medicine 07/24/25 documented as of this encounter
--- OUTSIDE RECORDS SUMMARY | 2025-08-20 12:34 | XMS_ITS | Encounter Summary ---
Author Organization [facility] Address [address] [place] [address] Care Team Providers Care Bleach Boiler Filler Name Role Phone Dimitrios Barreto MD Primary Care Provider Dimitrios Barreto MD Unavailable [phone] Erwin Palm MD Unavailable Unava ilable Encounter Details Date Type Department Care Team (Late st Contact Info) Description 12/02/2023 Scanned Document [facility] Department of Internal Medicine [address] 1st [place] [phone] Dimitrios Barreto MD [address] [place] [address] [phone] Social History Tobacco Use Types Packs/Day Years [...] Visit [facility] Department of Internal Medicine [place] 18 [facility] 1st [place] [phone] Dimitrios Barreto MD [address] [place] [address] documented as of this encounter Visit Diagnoses Not on filedocumented in this encounter Care Teams Bleach Boiler Filler Relationship Specialty Start Date End Date Dimitrios Barreto MD [address] [place] [address] PCP - General Dimitrios Barreto MD [address] [place] [address] PCP - [facility] Patients 12/30/22 Erwin Palm MD Internal Medicine 07/24/25 documented as of this encounter
--- OUTSIDE RECORDS SUMMARY | 2025-08-20 12:34 | XMS_ITS | Encounter Summary ---
Author Organization [facility] Address [address] [place] [address] Care Team Providers Care Pharmacy Operations Manager Name Role Phone Dimitrios Barreto MD Primary Care Provider Dimitrios Barreto MD Unavailable Erwin Palm MD Unavailable Unava ilable Encounter Details Date Type Department Care Team (Late st Contact Info) Description 10/13/2023 Scanned Document [facility] Department of Internal Medicine [address] [place] [phone] Dimitrios Barreto MD [address] [place] [address] [phone] Social History Tobacco Use Types Packs/Day Years [...] [facility] Department of Internal Medicine [address] [place] [phone] Dimitrios Barreto MD [address] [place] [address] documented as of this encounter Visit Diagnoses Not on filedocumented in this encounter Care Teams Pharmacy Operations Manager Relationship Specialty Start Date End Date Dimitrios Barreto MD [address] [place] [address] [place] [address] PCP - General Dimitrios Barreto MD [address] [place] [address] [place] [address] PCP - [facility] Patients 12/30/22 Erwin Palm MD Internal Medicine 07/24/25 documented as of this encounter
--- OUTSIDE RECORDS SUMMARY | 2025-08-20 12:34 | XMS_ITS | Encounter Summary ---
Author Organization [facility] Address [address] [place] [address] Care Team Providers Care Sap Consultant Name Role Phone Dimitrios Barreto MD Primary Care Provider [phone] Dimitrios Barreto MD Unavailable [phone] Erwin Palm MD Unavailable Unava ilable Encounter Details Date Type Department Care Team (Late Contact Info) Description 07/22/2024 Scanned Document [facility] Department of Internal Medicine [address] 1st [place] [phone] Dimitrios Barreto MD [address] [place] [address] [phone] Social History Tobacco Use Types Packs/Day Years [...] Visit [facility] Department of Internal Medicine [place] 18 [facility] 1st [place] [phone] Dimitrios Barreto MD 18 [place] [address] documented as of this encounter Visit Diagnoses Not on filedocumented in this encounter Care Teams Sap Consultant Relationship Specialty Start Date End Date Dimitrios Barreto MD [address] [place] [address] PCP - General Dimitrios Barreto MD [address] [place] [address] PCP - [facility] Patients 12/30/22 Erwin Palm MD Internal Medicine 07/24/25 documented as of this encounter
--- OUTSIDE RECORDS SUMMARY | 2025-08-20 12:34 | XMS_ITS | Encounter Summary ---
Author Organization [facility] Address [address] [place] [address] Care Team Providers Care Product Marketing Analyst Name Role Phone Dimitrios Barreto MD Primary Care Provider [phone] Dimitrios Barreto MD Unavailable [phone] Erwin Palm MD Unavailable Unava ilable Encounter Details Date Type Department Care Team (Late st Contact Info) Description 04/10/2024 Scanned Document [facility] Department of Internal Medicine [address] 1st [place] [phone] Dimitrios Barreto MD [address] [place] [phone] Social History Tobacco Use Types Packs/Day Years [...] Visit [facility] Department of Internal Medicine [place] 18 [facility] 1st [place] [phone] Dimitrios Barreto MD [address] [place] [address] documented as of this encounter Visit Diagnoses Not on filedocumented in this encounter Care Teams Product Marketing Analyst Relationship Specialty Start Date End Date Dimitrios Barreto MD [address] [place] [address] PCP - General Dimitrios Barreto MD [address] [place] [address] PCP - [facility] Patients 12/30/22 Erwin Palm MD Internal Medicine 07/24/25 documented as of this encounter
--- OUTSIDE RECORDS SUMMARY | 2025-08-20 12:34 | XMS_ITS | Clinical Summary ---
Author Organization [facility] Address [address] [place] [address] Care Team Providers Care Yardage Control Operator Forming Name Role Phone Dimitrios Barreto MD Primary Care Provider [phone] Dimitrios Barreto MD Unavailable [phone] Erwin Palm MD Unavailable Unava ilable [...] Encounters Date Type Department Care Team Description 08/01/2025 Telephone [facility] Department of Internal Medicine [address] [address] Dimitrios Barreto MD 07/19/2025 Orders Only [facility] [place] [address] Dimitrios Barreto MD 07/18/2025 11:15 AM EDT Office Visit [facility] Department of Internal Medicine [address] [phone] Dimitrios Barreto MD Dizziness (Primary Dx); Shortness of breath; Primary hypertension ; Type 2 diabetes mellitus with hyperglycemia, without long-term current use of insulin ([facility]) 06/08/2025 Refill [facility] Department of Internal Medicine [address] [address] Dimitrios Barreto MD Type 2 diabetes mellitus with hyperglycemia, without long-term current use of insulin ([facility]) 06/08/2025 Refill [facility] of [facility] Medicine [address] [address] Dimitrios Barreto MD Type 2 diabetes mellitus with hyperglycemia, without long-term current use of insulin ([facility]) from Last 3 Months Immunizations Immunization Administration [...] Description 11/19/2025 11:00 AM EST Office Visit [facility] Department of Internal Medicine [address] 1st [place] [phone] Dimitrios Barreto MD [address] [place] [address] Health Maintenance Due Date Last Done Comments Advance Care Planning 1950 Hepatitis C Virus Screening 1950 Foot Exam 1958 Ophthalmology Exam 1958 DXA Bone Density (Females,Ages 65 and older) 2013 Zoster (Shingles) Vaccine (3 of 3) 08/11/2019 06/16/2019, 06/18/2015 RSV Vaccine 60 years and older and Patients (1 - 1-dose 75+ series) 2023 Influenza Vaccine 06/29/2025 11/29/2021, , 06/30/2017, Additional history exists DTaP/Tdap/Td Vaccines (2 - Td or Tdap) 07/23/2025 07/23/2015 COVID-19 Vaccine ( season) 2025 11/29/2021, 02/20/2021, 01/23/2021, Additional history exists Lipid Panel 11/10/2025 11/10/2024, 06/0 05/2024, 11/03/2023, Additional history exists Hemoglobin A1C 01/18/2026 07/18/2025, 01/28, 11/10/2024, Additional history exists Microalbumin/Creatinine Ratio Urine [...] your patient to us, Bright White MD [id number] (Electronically Signed - 07/20/2025 10:18) Narrative 07/20/2025 [...] White MD 07/20/2025 10:18 AM EDT RPWorkstation: [id number] Thank you for referring your patient to us, Bright White MD [id number] (Electronically Signed - 07/20/2025 10:18) Dimitrois Barreto MD IMG LEGACY PROCEDURES Final R [...] / Unknown 07/19/2025 07/19/2025 Comment:Blood Narrative [facility] ([facility]) - 07/19/2025 12:06 PM EDT Performed at: 01 - [address] [id number] Apartment Assistant Manager: Unique Garcia MD, Phone: [phone] Dimitrios Barreto MD LAB BLOOD ORDERABLES Final Re sult [facility] ([facility]) [facility] 1 * (ABNORMAL) Hemoglobin A1C with Estimated Average Glucose (07/18/2025 12:05 PM EDT) Hemoglobin A1C 7.2(H) 4.2 - 5.6 % of total Hgb [facility] Comment: HbA1c levels below the established reference range may indicate recent episodes of hypoglycemia, the presence of Hb variants or shortened lifespan of red cells. Clinical correlation and/or hemoglobin electrophoresis may be indicated. Estimated Average Glucose (mg/dL) 160 mg/dL [facility] Estimated Average Glucose (mmol/L) 8.9 mmol/L [facility] Blood Blood specimen / Unknown 07/18/2025 12:05 PM EDT 07/18/2025 7:57 PM EDT us Dimitrios Barreto MD LAB BLOOD ORDERABLES Final Re sult [facility] [address] [place] [address], * (ABNORMAL) Complete Blood Count, with Differential (07/18/2025 12:05 PM EDT) WBC 8.14 4.00 - 11.00 Thousand/u L [facility] RBC 4.98 4.04 - 5.48 Million/uL [facility] Hemoglobin 11.6(L) 12.0 - 14.1 g/dL [facility] Hematocrit 39.4 33.5 - 43.3 % [facility] MCV 79.1(L) 80.0 - 97.0 fL [facility] MCH 23.3(L) 27.0 - 31.2 pg [facility] MCHC 29.4(L) 31.8 - 35.4 g/dL [facility] RDW-CV 15.1(H) 11.6 - 14.8 % [facility] Platelet Count 355.0 142.0 - 424.0 Thousand/u L [facility] MPV 10.6 8.0 - 13.0 fL [...] Basophils 0.1 0.0 - 0.1 Thousand/u L [facility] Immature Granulocytes 0.200 0.001 - 0.900 % [facility] Abs Immature Granulocytes 0.0200 0.0000 - 0.0700 Thousand/u L [facility] Nucleated RBCS (%) 0.0 0.0 - 0.2 % [facility] NRBC, Absolute 0.000 0.000 - 0.012 Thousand/u L [facility] Blood Blood specimen / Unknown 07/18/2025 12:05 PM EDT 07/18/2025 7:57 PM EDT us Dimitrios Barreto MD LAB BLOOD ORDERABLES Final Re sult [address] * (ABNORMAL) Comprehensive Metabolic Panel (07/18/2025 12:05 PM EDT) Glucose 185(H) 70 - 99 mg/dL [facility] Blood Urea Nitrogen 15 7 - 22 mg/dL [facility] Creatinine, Ser 0.7 0.5 - 1.2 mg/dL [facility] Bun / Creat Ratio 21 11 - 30 [facility] Sodium 141 133 - 145 mmol/L [facility] Potassium 4.4 3.3 - 5.1 mmol/L [facility] Chloride 104 96 - 108 mmol/L [facility] CO2 23 22 - 31 mmol/L [facility] Anion Gap 14 3 - 19 mmol/L [facility] Calcium 9.6 8.8 - 10.6 mg/dL [facility] Total Protein 6.9 6.0 - 8.3 g/dL [facility] Albumin 4.3 3.2 - 4.8 g/dL [facility] Globulin 2.6 2.0 - 3.5 g/dL [facility] Albumin/Globulin Ratio 1.7 1.0 - 5.0 [facility] Aspartate Aminotrans (AST) 19 8 - 37 IU/L [facility] Alanine Aminotrans (ALT) 17 5 - 40 IU/L [facility] Alkaline Phosphatase 141 37 - 145 IU/L [facility] Bilirubin, Total 0.3 0.0 - 1.0 mg/dL [facility] GFR Estimated (calculated) >60 >60 [facility] Comment: As of 2021, the [facility] has updated the creatinine- based estimated glomerular filtration rate (eGFRcr) to the updated CKD-EPI 2020 equation. This change removes the race coefficient of the older calculation, and was made based on recommendations from the National Kidney Foundation and the [place] [employer]ph[employer]'s Task Force. The new [...] MD LAB BLOOD [place] [address], * ECG 12 lead (07/18/2025 11:11 AM EDT) 07/18/2025 11:1 1 AM EDT Impressions Dimitrios Barreto MD - 07/18/2025 11:11 AM EDT Normal sinus rhythm 83 normal intervals no ischemia Dimitrios Barreto MD ECG ORDERABLES Final Result * Microalbumin, Creatinine, Urine, Random (02/23/2025 9:35 AM EDT) Microalbumin,Ur ine 15 mg/L [facility] Comment: Reference range not established. Creatinine, Urine 170.1 mg/dL [facility] Comment: 1st Morning Urine: Male: 39 - 259 mg/dL Female: 28 - 217 mg/dL Microalbumin/Cr eatinine Ratio 8.8 <30.0 mg/g CREAT [facility] Urine Urine specimen / Unknown 02/23/2025 9:35 AM EDT 02/23/2025 5:20 PM EDT Dimitrios Barreto MD URINE ORDERABLES Final Result [facility] [address] [place] [address] * (ABNORMAL) LIPID PANEL (11/10/2024 9:24 AM [...] 9:24 AM EST 11/10/2024 5:05 PM EST Dimitrios Barreto MD LAB BLOOD ORDERABLES Final Re sult Performing Organization Address City/[facility]/ZIP Co de Phone Number [address] from Last 3 Months or Most Recently Relevant to Health Maintenance Insurance MEDICARE PART A & B [facility] MEDICARE PART A & B [facility] Care Teams Yardage Control Operator Forming Relationship Specialty Start Date End Date Dimitrios Barreto MD [address] [place] [address] PCP - General Dimitrios Barreto MD [address] [place] [address] PCP - [facility] Medicare Patients 12/30/22 Erwin Palm MD Internal Medicine 07/24/25
--- OUTSIDE RECORDS SUMMARY | 2025-08-20 12:34 | XMS_ITS | Encounter Summary ---
Author Organization [facility] Address [address] [place] [address] Care Team Providers Care Ply Cutter Name Role Phone Dimitrios Barreto MD Primary Care Provider Dimitrios Barreto MD Unavailable Erwin Palm MD Unavailable Unava ilable Encounter Details Date Type Department Care Team (Late st Contact Info) Description 10/26/2023 Scanned Document [facility] Department of Internal Medicine [address] [place] [phone] Dimitrios Barreto MD [address] [place] [address] [phone] Social History Tobacco Use Types Packs/Day Years [...] 11/19/2025 11:00 AM EST Office Visit [facility] Department of Internal Medicine [address] [place] [phone] Dimitrios Barreto MD [address] [place] [address] documented as of this encounter Visit Diagnoses Not on filedocumented in this encounter Care Teams Ply Cutter Relationship Specialty Start Date End Date Dimitrios Barreto MD [address] [place] [address] [place] [address] PCP - General Dimitrios Barreto MD [address] [place] [address] [place] [address] PCP - [facility] Medicare Patients 12/30/22 Erwin Palm MD Internal Medicine 07/24/25 documented as of this encounter
--- OUTSIDE RECORDS SUMMARY | 2025-08-20 12:34 | XMS_ITS | Encounter Summary ---
Author Organization [facility] Address [address] [place] [address] Care Team Providers Care Fine Jewelry Sales Associate Name Role Phone Dimitrios Barreto MD Primary Care Provider Dimitrios Barreto MD Unavailable [phone] Erwin Palm MD Unavailable Unava ilable Encounter Details Date Type Department Care Team (Late Contact Info) Description 07/27/2024 Scanned Document [facility] Department of Internal Medicine [address] 1st [place] [phone] Dimitrios Barreto MD [address] [place] [phone] Social History Tobacco Use Types Packs/Day Years [...] Visit [facility] Department of Internal Medicine [place] 18 [facility] 1st [place] [phone] Dimitrios Barreto MD [address] [place] [address] documented as of this encounter Visit Diagnoses Not on filedocumented in this encounter Care Teams Fine Jewelry Sales Associate Relationship Specialty Start Date End Date Dimitrios Barreto MD [address] [place] [address] PCP - General Dimitrios Barreto MD [address] [place] [address] PCP - [facility] Medicare Patients 12/30/22 Erwin Palm MD Internal Medicine 07/24/25 documented as of this encounter
--- OUTSIDE RECORDS SUMMARY | 2025-08-20 12:34 | XMS_ITS | Encounter Summary ---
Author Organization [facility] Address [address] [place] [address] Care Team Providers Care Webbing Tacker Name Role Phone Dimitrios Barreto MD Primary Care Provider Dimitrios Barreto MD Unavailable Erwin Palm MD Unavailable Unava ilable Encounter Details Date Type Department Care Team (Late st Contact Info) Description 04/30/2023 Scanned Document [facility] Department of Internal Medicine [address] [place] [phone] Dimitrios Barreto MD [address] [place] [address] [phone] Social History Tobacco Use Types Packs/Day Years [...] Description 11/19/2025 11:00 AM EST Office Visit [facility] Department of Internal Medicine [address] [place] [phone] Dimitrios Barreto MD [address] [place] [address] documented as of this encounter Visit Diagnoses Not on filedocumented in this encounter Care Teams Webbing Tacker Relationship Specialty Start Date End Date Dimitrios Barreto MD [address] [place] [address] [place] [address] PCP - General Dimitrios Barreto MD [address] [place] [address] [place] [address] PCP - [facility] Medicare Patients 12/30/22 Erwin Palm MD Internal Medicine 07/24/25 documented as of this encounter
--- OUTSIDE RECORDS SUMMARY | 2025-08-20 12:34 | XMS_ITS | Encounter Summary ---
Author Organization [facility] Address [address] [place] [address] Care Team Providers Care Hydroelectric Plant Technician Name Role Phone Dimitrios Barreto MD Primary Care Provider Dimitrios Barreto MD Unavailable [phone] Erwin Palm MD Unavailable Unava ilable Encounter Details Date Type Department Care Team (Late st Contact Info) Description 03/26/2023 Scanned Document [facility] Department of Internal Medicine [address] [place] [phone] Dimitrios Barreto MD [address] [place] [address] [phone] Social History Tobacco Use Types Packs/Day Years [...] 11/19/2025 11:00 AM EST Office Visit [facility] Department of Internal Medicine [address] [place] [phone] Dimitrios Barreto MD [address] [place] [address] documented as of this encounter Visit Diagnoses Not on filedocumented in this encounter Care Teams Hydroelectric Plant Technician Relationship Specialty Start Date End Date Dimitrios Barreto MD [address] [place] [address] [place] [address] PCP - General Dimitrios Barreto MD [address] [place] [address] [place] [address] PCP - [facility] Medicare Patients 12/30/22 Erwin Palm MD Internal Medicine 07/24/25 documented as of this encounter
--- OUTSIDE RECORDS SUMMARY | 2025-08-20 12:34 | XMS_ITS | Encounter Summary ---
Author Organization [facility] Address [address] [place] [address] Care Team Providers Care Landscape Painter Name Role Phone Dimitrios Barreto MD Primary Care Provider [phone] Dimitrios Barreto MD Unavailable [phone] Erwin Palm MD Unavailable Unava ilable Encounter Details Date Type Department Care Team (Late Contact Info) Description 07/25/2024 Scanned Document [facility] Department of Internal Medicine [address] 1st [place] [phone] Dimitrios Barreto MD [address] [place] [address] [phone] Social History Tobacco Use Types Packs/Day Years [...] Visit [facility] Department of Internal Medicine [place] 18 [facility] 1st [place] [phone] Dimitrios Barreto MD [address] [place] [address] documented as of this encounter Visit Diagnoses Not on filedocumented in this encounter Care Teams Landscape Painter Relationship Specialty Start Date End Date Dimitrios Barreto MD [address] [place] [address] PCP - General Dimitrios Barreto MD [address] [place] [address] PCP - [facility] Medicare Patients 12/30/22 rEwin Palm MD Internal Medicine 07/24/25 documented as of this encounter
--- OUTSIDE RECORDS SUMMARY | 2025-08-20 12:34 | XMS_ITS | Encounter Summary ---
Author Organization [facility] Address [address] [place] [address] Care Team Providers Care Electrode Turner And Finisher Name Role Phone Dimitrios Barreto MD Primary Care Provider [phone] Dimitrios Barreto MD Unavailable [phone] Erwin Palm MD Unavailable Unava ilable Encounter Details Date Type Department Care Team (Late st Contact Info) Description 12/02/2023 Scanned Document [facility] Department of Internal Medicine [address] 1st [place] [phone] Dimitrios Barreto MD [address] [place] [address] [phone] Social History Tobacco Use Types Packs/Day Years [...] Visit [facility] Department of Internal Medicine [place] 18 [facility] 1st [place] [phone] Dimitrios Barreto MD 18 [place] [address] documented as of this encounter Visit Diagnoses Not on filedocumented in this encounter Care Teams Electrode Turner And Finisher Relationship Specialty Start Date End Date Dimitrios Barreto MD [address] [place] [address] PCP - General Dimitrios Barreto MD [address] [place] [address] PCP - [facility] Medicare Patients 12/30/22 Erwin Palm MD Internal Medicine 07/24/25 documented as of this encounter
== END 2025-08-20 10:23 | disposition home or self-care (01) ==
LOC: HO.HMGAL 10:14
PROVIDERS: PCP Registered Nurse Emergency; Visit Provider Registered Nurse Emergency
DX: J30.89 Other allergic rhinitis (principal)
CPT/HCPCS: 95117; 95165

== ENCOUNTER 2025-09-17 11:33 | Outpatient (AMB) | payer MEDICARE, SELFPAY | END 2025-09-17 11:34 | disposition home or self-care (01) | LOC: HO.HMGAL 11:33 | PROVIDERS: Visit Provider Registered Nurse Emergency | DX: J30.89 Other allergic rhinitis (principal) | CPT/HCPCS: 95117; 95165 ==

== ENCOUNTER 2025-10-15 09:29 | Outpatient (AMB) | payer MEDICARE, SELFPAY | END 2025-10-15 09:30 | disposition home or self-care (01) | LOC: HO.HMGAL 09:29 | PROVIDERS: Visit Provider Registered Nurse Emergency | DX: J30.89 Other allergic rhinitis (principal) | CPT/HCPCS: 95117; 95165 ==